=== PATIENT | female | born 1980 | race Caucasian/White ===

== ENCOUNTER 2024-05-06 11:04 | Outpatient (CLI) | payer MEDICAID, SELFPAY | END 2024-05-06 11:05 | disposition home or self-care (01) | LOC: NFLDUCREF 11:04 | PROVIDERS: Visit Provider Nurse Practitioner | DX: L29.9 Pruritus, unspecified (principal) | CPT/HCPCS: 80053 ==

== ENCOUNTER 2024-07-07 10:27 | Inpatient (IN) | payer MEDICAID, SELFPAY ==
[2024-07-07] VITALS (37 sets, daily range): BP systolic 90–143; BP diastolic 64–103; PULSE 120–150; RESP 16–20; TEMP 36.8–37.7; O2SAT 97–100; BMI 20.1
--- NOTE | 2024-07-07 10:30 | ED.GENADULT ---
HPI - General Adult General Date Seen: 07/07/24 Chief complaint: Dizziness/Vertigo Stated complaint: light headed - from UC - abnormal lab Time Seen by Provider: 07/07/24 10:30 History of Present Illness HPI narrative: 43-year-old female who was referred to the ER from the urgent care. Phone call from the urgent care provider is that she is a 40-year-old female with a history of alcoholism. She has apparently been cutting back on alcohol lately and apparently is not drinking currently. She presented with many complaints this morning. She is on an [id number] diuretic which contains magnesium salicylate. She takes it for peripheral edema. Her labs in urgent care this morning showed a critically low potassium less than 2.0. Vital signs included blood pressure of 97/58 and a pulse rate of 149. He urgent care was not able to get a manager cardiac or EKG to look for cardiac arrhythmias. They sent her straight here to the ER. Related Data Home Medications ?Medication ?Instructions ?Recorded ?Confirmed aspirin 81 mg tablet,delayed 81 mg PO QDAY 07/07/24 07/07/24 release (Adult Aspirin Regimen) magnesium salicylate-caffeine PO 07/07/24 07/07/24 [Diurex] Allergies Allergy/AdvReac Type Severity Reaction Status Date / Time No Known Drug Allergies Allergy Verified 07/07/24 10:47 Exam Const: Vital Signs, click to edit/add: Vital Signs - 24 hr 07/07/24 10:39 Temperature 98.2 F Pulse Rate [] 149 H Respiratory Rate 18 Blood Pressure [] 90/64 Pulse Oximetry 99 Oxygen Delivery Me thod Room Air Course Vital Signs Vital signs: Initial Vital Signs Temperature 98.2 F 07/07/24 10:39 Temperature Source Temporal Artery Scan 07/07/24 10:39 Pulse Rate 149 H 07/07/24 10:39 Respiratory Rate 18 07/07/24 10:39 Blood Pressure 90/64 07/07/24 10:39 Blood Pressure Mean 72 07/07/24 10:39 Blood Pressure Position Sitting 07/07/24 10:39 Pulse Oximetry 99 07/07/24 10:39 Oxygen Delivery Method Room Air 07/07/24 10:39 Vital Signs Temperature 98.2 F 07/07/24 10:39 Pulse Rate 149 H 07/07/24 10:39 Respiratory Rate 18 07/07/24 10:39 Blood Pressure 90/64 07/07/24 10:39 Pulse Oximetry 99 07/07/24 10:39 Oxygen Delivery Method Room Air 07/07/24 10:39 Temperature 98.2 F 07/07/24 10:39 Pulse Rate 149 H 07/07/24 10:39 Respiratory Rate 18 07/07/24 10:39 Blood Pressure 90/64 07/07/24 10:39 Pulse Oximetry 99 07/07/24 10:39 Oxygen Delivery Method Room Air 07/07/24 10:39 Medical Decision Making ECG Data Interpretation: SINUS TACHYCARDIA Rate: 149 OK: [] QRS axis: [] ST segment/T wave: [] QTc: [] Discharge Plan Discharge Prescriptions: No Action magnesium salicylate-caffeine [Diurex] PO aspirin [Adult Aspirin Regimen] 81 mg tablet,delayed release (DR/EC) 81 mg PO QDAY Follow Up/Referrals: Provider,Not a Local [Primary Care Provider] -
[2024-07-07 11:21] LABS: Basophils Percent Auto 0.1 % (0.0-3.0); Eosinophils Percent Auto 0.1 % (0.0-7.0); Hematocrit 32.1 % (33.0-51.0); Immature Granulocytes Pct Auto 0.4 %; Lymphocytes Percent Auto 11.9 % (20-44); Mean Corpuscular HGB Conc 37 gm/dL (32-36); Mean Corpuscular Hemoglobin 38 pg (26-34); Mean Corpuscular Volume 101 fL (80-100); Neutrophils Percent Auto 83.5 % (42.0-72.0); Platelet Count* 249 K/uL (140-440); RDW Coefficient of Variation % 19.1 % (11.5-15.5); Red Blood Count 3.17 m/uL (4.00-5.20); White Blood Count* 15.95 K/uL (4.50-11.00)
--- NOTE | 2024-07-07 11:24 | CRLHL7_ITS ---
For Patients: As a result of the Cures Act, medical imaging exams and procedure reports are released immediately into your electronic medical record. You may view this report before your referring provider. If you have questions, please contact your health care provider. INDICATION: Shortness of breath. TECHNIQUE: Chest 2 view(s) COMPARISON: None. FINDINGS: Cardiomediastinal silhouette and pulmonary vasculature are normal. No focal consolidation. Probable punctate calcified granulomas in the right upper lobe. No layering pleural effusion. No pneumothorax. Multilevel degenerative changes of the visualized spine. IMPRESSION: No focal consolidation. Dictated by Carlos Haywood MD @ 07/07/2024 12:11:35 PM (Electronically Signed)
--- NOTE | 2024-07-07 11:28 | ED.GENADULT ---
HPI - General Adult General Date Seen: 07/07/24 Chief complaint: Dizziness/Vertigo Stated complaint: light headed - from UC - abnormal lab Time Seen by Provider: 07/07/24 10:30 Source: patient, RN notes reviewed and old records reviewed Mode of arrival: ambulatory Limitations: no limitations History of Present Illness HPI narrative: Patient is a 43-year-old woman who went to urgent care today because of she says feeling weak and dizzy and sometimes short of breath. She has had symptoms on and off she says since april. She sometimes has nausea and vomiting sometimes diarrhea which she says is nonbloody. She has also noted some swelling in her ankles. The symptoms are very sporadic and do not happen predictably or every day. At Urgent Care she was noted to have a significantly low potassium as well as sinus tachycardia and was sent here for further evaluation. She does tell me that she has a history of heavy alcohol use for the past 3 years. She says she weaned herself off in april, but notes that she did have some alcohol a few days ago. She denies any other substance use. She does smoke cigarettes. Denies known medical history aside from anxiety and depression. She has not had any chest pain or abdominal pain. She has not had fevers. She has not had upper respiratory symptoms recently. Related Data Home Medications ?Medication ?Instructions ?Recorded ?Confirmed magnesium salicylate-caffeine 1 tab PO DAILY 07/07/24 07/07/24 Allergies Allergy/AdvReac Type Severity Reaction Status Date / Time No Known Drug Allergies Allergy Verified 07/07/24 10:47 Review of Systems Status of ROS: Reports: 10 or more systems reviewed and unremarkable except as noted in History and below [facility] Social History Smoking Status: Current every day smoker Do you use any of these nicotine containing products: None How many standard drinks containing alcohol do you have on a typical day: 3 or 4 How often do you have six or more drinks on one occasion: Daily or almost daily AUDIT-C Alcohol total score: 5 Non-prescribed substance use: denies use Exam Narrative: Exam Narrative: Vital signs as noted above. In general, an alert, nontoxic woman. Breathing easily. Head: Normocephalic, atraumatic. Eyes: Pupils are equal reactive. Extraocular movements are full. I do not see significant scleral icterus. ENT: Mucous membranes are moist. Neck: Supple without lymphadenopathy. Heart: Tachycardic and regular, no murmur. Lungs: Clear bilaterally. No increased work of breathing, crackles or wheezes. Abdomen: No obvious ascites. Liver edge is palpable below the costal margin. No tenderness to palpation. Extremities: Well perfused. No edema. No calf tenderness. Pulses intact. Neurologic: Patient is alert and oriented to person and place. Speech is fluent. Face is symmetric. Moves all extremities equally. Affect: Normal. Skin: Warm and dry. Well perfused. No obvious stigmata of liver disease. Const: Vital Signs, click to edit/add: Vital Signs - 24 hr 07/07/24 10:39 07/07/24 11:09 07/07/24 11:10 Temperature 98.2 F Pulse Rate 143 H 134 H Pulse Rate [Pulse Oximeter] 149 H Respiratory Rate 18 Blood Pressure 120/86 Blood Pressure [Ri ght Upper Arm] 90/64 Pulse Oximetry 99 100 100 Oxygen Delivery Me thod Room Air 07/07/24 11:15 07/07/24 11:30 07/07/24 11:32 Temperature Pulse Rate 129 H 139 H 138 H Pulse Rate [Pulse Oximeter] Respiratory Rate Blood Pressure 131/91 H Blood Pressure [Ri ght Upper Arm] Pulse Oximetry 100 100 100 Oxygen Delivery Me thod 07/07/24 11:45 07/07/24 12:00 07/07/24 12:02 Temperature Pulse Rate 142 H 132 H 139 H Pulse Rate [Pulse Oximeter] Respiratory Rate Blood Pressure 123/97 H Blood Pressure [Ri ght Upper Arm] Pulse Oximetry 100 100 100 Oxygen Delivery Me thod 07/07/24 12:03 07/07/24 12:15 07/07/24 12:30 Temperature Pulse Rate 142 H 134 H 129 H Pulse Rate [Pulse Oximeter] Respiratory Rate Blood Pressure Blood Pressure [Ri ght Upper Arm] Pulse Oximetry 100 99 99 Oxygen Delivery Me thod 07/07/24 12:32 07/07/24 12:45 07/07/24 13:00 Temperature Pulse Rate 130 H 125 H 131 H Pulse Rate [Pulse Oximeter] Respiratory Rate Blood Pressure 128/94 H Blood Pressure [Ri ght Upper Arm] Pulse Oximetry 98 99 98 Oxygen Delivery Me thod 07/07/24 13:02 07/07/24 13:15 07/07/24 13:30 Temperature Pulse Rate 129 H 123 H 138 H Pulse Rate [Pulse Oximeter] Respiratory Rate Blood Pressure 120/87 Blood Pressure [Ri ght Upper Arm] Pulse Oximetry 100 99 97 Oxygen Delivery Me thod 07/07/24 13:32 07/07/24 13:33 07/07/24 13:45 Temperature Pulse Rate 139 H 138 H 135 H Pulse Rate [Pulse Oximeter] Respiratory Rate Blood Pressure 136/96 H Blood Pressure [Ri ght Upper Arm] Pulse Oximetry 98 98 97 Oxygen Delivery Me thod Documenting provider has reviewed patient's vital signs: yes Course Course ED Course: Labs from Urgent Care rare reviewed, this was the point of care testing but potassium was noted to be less than 2, ionized calcium was 0.9, sodium 126. Her CO2 was normal. Blood sugar was normal. An IV is established here. She had an EKG which appears to show a sinus tachycardia with a fairly short MD interval and narrow QRS. No acute ST segment changes. Will give 500 mL of normal saline as well as IV and oral potassium replacement. Labs ordered including CBC, formal metabolic panel, ionized calcium, lactate, liver panel, UA among others. Labs most notable for potassium of 1.7, sodium of 124, ionized calcium of 0.9, magnesium of 1.8. White blood cell count is a little elevated at 16, hemoglobin is 12 and she has normal platelets. Gas shows metabolic alkalosis with a pH of 7.5 and a bicarb of 38. Renal function shows a creatinine of 0.3 and BUN is 4. Mild increased gap of 17. Blood sugars 100. Lactate could not be calculated because of electrolyte abnormalities. LFTs not surprisingly show an elevated bilirubin of 1.9, direct of 0.9, AST of 335 ALT pending alk-phos of 246. CRP minimally elevated at 2.2. Chest x-ray by my review was clear, final radiology read likewise negative.Patient: RICHARD TORRES Facility: [facility] Site . Site : [id number] Study: XRay-Chest 2V-07/07/2024 11:40:47 AM Ordering Physician: Kady Chan Final Report: INDICATION: Shortness of breath. TECHNIQUE: Chest 2 view(s) COMPARISON: None. FINDINGS: Cardiomediastinal silhouette and pulmonary vasculature are normal. No focal consolidation. Probable punctate calcified granulomas in the right upper lobe. No layering pleural effusion. No pneumothorax. Multilevel degenerative changes of the visualized spine. IMPRESSION: No focal consolidation. Tachycardia mildly improved after 500 mL of normal saline. Blood alcohol 0.08, inconsistent with her HPI is stating last alcohol a few days ago. COVID negative. No active signs of withdrawal at this time. Plan is for admission for treatment of severe hypokalemia and hyponatremia, further evaluation as to the etiology of these. This may be simply related to alcohol with occasional vomiting, primary aldosteronism felt to be unlikely in the absence of hypertension. While in the emergency department she had 40 mEq of extended release potassium orally as well as 2 10 mEq aliquots of IV potassium. Further electrolyte replacement will be carried out in the hospital. Discussed potential imaging of the abdomen, will hold off on that until stabilized metabolically. Vital Signs Vital signs: Initial Vital Signs Temperature 98.2 F 07/07/24 10:39 Temperature Source Temporal Artery Scan 07/07/24 10:39 Pulse Rate 149 H 07/07/24 10:39 Respiratory Rate 18 07/07/24 10:39 Blood Pressure 90/64 07/07/24 10:39 Blood Pressure Mean 72 07/07/24 10:39 Blood Pressure Position Sitting 07/07/24 10:39 Pulse Oximetry 99 07/07/24 10:39 Oxygen Delivery Method Room Air 07/07/24 10:39 Vital Signs Temperature 98.2 F 07/07/24 10:39 Pulse Rate 149 H 07/07/24 10:39 Respiratory Rate 18 07/07/24 10:39 Blood Pressure 90/64 07/07/24 10:39 Pulse Oximetry 99 07/07/24 10:39 Oxygen Delivery Method Room Air 07/07/24 10:39 Temperature 98.2 F 07/07/24 10:39 Pulse Rate 135 H 07/07/24 13:45 Respiratory Rate 18 07/07/24 10:39 Blood Pressure 136/96 H 07/07/24 13:32 Pulse Oximetry 97 07/07/24 13:45 Oxygen Delivery Method Room Air 07/07/24 10:39 Medications Administered Medications: Generic Name Dose Route Start Last Admin Trade Name Freq PRN Reason Stop Dose Admin Potassium Chloride 10 meq in 100 mls @ 100 mls/hr 07/07/24 13:06 07/07/24 13:16 Potassium Chloride IVPB 07/07/24 14:05 100 mls/hr ONCE ONE Administration Discontinued Medications Generic Name Dose Route Start Last Admin Trade Name Kwabena PRN Reason Stop Dose Admin Sodium Chloride 500 mls @ 500 mls/hr 07/07/24 11:23 07/07/24 13:05 0.9 % Sodium Chloride 500 Ml IV 07/07/24 12:22 Infused .Q1H ONE Infusion Potassium Chloride 10 meq in 100 mls @ 100 mls/hr 07/07/24 11:23 07/07/24 13:12 Potassium Chloride IVPB 07/07/24 12:22 Infused ONCE ONE Infusion Potassium Chloride 40 meq 07/07/24 11:23 07/07/24 11:59 Potassium Chloride 10 Meq Capsule Er PO 07/07/24 11:24 40 meq ONCE ONE Administration Medical Decision Making Lab Data Labs: Lab Results 07/07/24 07/07/24 07/07/24 Range/Units 11:10 11:25 11:45 WBC 15.95 H (4.50-11.00) K/uL RBC 3.17 L (4.00-5.20) m/uL Hgb 12.0 (12.0-16.0) gm/dL Hct 32.1 L (33.0-51.0) % MCV 101 H (80-100) fL MCH 38 H (26-34) pg MCHC 37 H (32-36) gm/dL RDW Coeff of Sylvain 19.1 H (11.5-15.5) % Plt Count 249 (140-440) K/uL Neut % (Auto) 83.5 H (42.0-72.0) % Lymph % (Auto) 11.9 L (20-44) % Desha % (Auto) 4.0 (0.0-11.0) % Eos % (Auto) 0.1 (0.0-7.0) % Baso % (Auto) 0.1 (0.0-3.0) % Neut # (Auto) 13.30 H (1.7-7.0) K/uL Lymph # (Auto) 1.90 (0.90-2.90) K/uL Desha # (Auto) 0.60 (0.00-0.90) K/UL Eos # (Auto) 0.00 (0.00-0.50) K/uL Baso # (Auto) 0.00 (0.00-0.30) K/uL Abs Immat Gran (auto) 0.10 (0.00-0.30) K/uL Imm/Tot Granulo (auto) 0.4 % INR 0.97 (0.91-1.10) VBG pH 7.532 H (7.32-7.43) VBG pCO2 46 (40-50) mmHG VBG pO2 < 30.1 (25-47) mmHG VBG HCO3 38 H (21-28) mmol/L Sodium 124 L* (135-149) mmol/L Potassium 1.7 L* (3.6-5.1) mmol/L Chloride 73 L (96-114) mmol/L Carbon Dioxide 34 H (20-32) mmol/L Anion Gap 17 H (7-15) mEq/L BUN 4 L (5-24) mg/dL Creatinine 0.3 L (0.5-1.5) mg/dL Estimated Creat Clear 190.46 Estimated GFR 135 ml/min Glucose 100 (60-115) mg/dL Lactate (0.5-1.9) mmol/L Calcium 8.1 L (8.4-10.6) mg/dL Ionized Calcium Reji 0.92 L (1.11-1.30) mmol/L Magnesium 1.8 (1.5-2.6) mg/dL Total Bilirubin 1.9 H (0.1-1.5) mg/dL Direct Bilirubin 0.9 H (0.0-0.5) mg/dL AST 335 H (12-35) U/L ALT 138 H (4-35) U/L Alkaline Phosphatase 246 H (40-150) U/L C-Reactive Protein 2.2 H (0.5-1.0) mg/dL NT-Pro-B Natriuret Pep 1000 pg/mL Total Protein 6.6 (6.0-8.3) g/dL Albumin 3.3 (3.3-5.0) g/dL TSH 1.920 (0.270-4.200) uIU/mL Ethyl Alcohol 0.08 H (0.01-0.03) % SARS-CoV-2 (PCR) Negative SARS-CoV-2 (Negative) Influenza Type A (PCR) Negative PCR FLU A (Negative) Influenza Type B (PCR) Negative PCR FLU B (Negative) RSV (PCR) Negative PCR RSV (Negative) POC Troponin I 0.01 (0.01-0.04) ng/ml
[2024-07-07] MEDS: 0.9 % SODIUM CHLORIDE 500 ML 500 ML IV (11:54)
[2024-07-07] MEDS: POTASSIUM CHLORIDE 10 MEQ/100 ML PIGGYBACK 100 MEQ IVPB ×3 (11:55→14:25)
[2024-07-07 11:56] LABS: HCO3 VBG 38 mmol/L (21-28); Ionized Calcium* 0.92 mmol/L (1.11-1.30); PCO2 VBG 46 mmHG (40-50); PO2 VBG < 30.1 mmHG (25-47); pH VBG 7.532 (7.32-7.43)
[2024-07-07 11:58] LABS: Slide Review Reflex No
[2024-07-07] MEDS: POTASSIUM CHLORIDE 10 MEQ CAPSULE ER 40 MEQ PO (11:59)
[2024-07-07 12:12] LABS: INR 0.97 (0.91-1.10); Prothrombin Time 13.5 Seconds
[2024-07-07 12:39] LABS: PCR FLU A Negative PCR FLU A (Negative); PCR FLU B Negative PCR FLU B (Negative); PCR RSV Negative PCR RSV (Negative); SARS PCR* Negative SARS-CoV-2 (Negative)
[2024-07-07 12:44] LABS: Troponin, Point-of-Care* 0.01 ng/ml (0.01-0.04)
[2024-07-07 12:46] LABS: Albumin* 3.3 g/dL (3.3-5.0); Chloride* 73 mmol/L (96-114)
[2024-07-07 12:48] LABS: Creatinine* 0.3 mg/dL (0.5-1.5); Est. Creatinine Clearance* 190.46; Estimated Glomerular Filt Rate 135 ml/min
[2024-07-07 12:49] LABS: Alkaline Phosphatase* 246 U/L (40-150); Aspartate Amino Transferase* 335 U/L (12-35); Bilirubin Direct* 0.9 mg/dL (0.0-0.5); Bilirubin Total* 1.9 mg/dL (0.1-1.5); Blood Urea Nitrogen* 4 mg/dL (5-24); Carbon Dioxide* 34 mmol/L (20-32); Glucose* 100 mg/dL (60-115); Total Protein* 6.6 g/dL (6.0-8.3)
[2024-07-07 12:50] LABS: Calcium* 8.1 mg/dL (8.4-10.6); Ethanol* 0.08 % (0.01-0.03); Magnesium* 1.8 mg/dL (1.5-2.6)
[2024-07-07 12:52] LABS: Anion Gap 17 mEq/L (7-15); C Reactive Protein* 2.2 mg/dL (0.5-1.0)
[2024-07-07 12:53] LABS: Sodium* 124 mmol/L (135-149)
[2024-07-07 12:54] LABS: Potassium* 1.7 mmol/L (3.6-5.1)
[2024-07-07 13:11] LABS: Alanine Aminotransferase* 138 U/L (4-35); NT Pro B Type NatriureticPept* 1000 pg/mL
[2024-07-07] MEDS: CALCIUM GLUC 1,000MG/50 ML 1,000 MG/50 ML BAG 100 MG IVPB ×2 (14:13→22:56)
[2024-07-07 14:18] LABS: Appearance Urine Cloudy (Clear); Bilirubin Urine 2+ (Negative); Blood Urine Trace-intact (Negative); Color Urine Red (Yellow); Glucose Urine Negative (Negative); Ketones Urine 1+ (Negative); Leukocyte Esterase Urine Negative (Negative); Nitrite Urine Positive (Negative); Protein Urine 2+ (Negative); Urobilinogen Urine >=8.0 (0.2-1.0); pH Urine 6.5 (5.0-8.5)
[2024-07-07 14:19] LABS: PCO2 VBG 44 mmHG (40-50); PO2 VBG < 30.1 mmHG (25-47); pH VBG 7.558 (7.32-7.43)
[2024-07-07 14:20] LABS: HCO3 VBG 39 mmol/L (21-28)
[2024-07-07 14:34] LABS: Bacteria Urine Many; RBC Urine 0-2 (0-2); Squamous Epithelial Cell Urine Few (None-Few); WBC Urine 0-2 (0-5)
[2024-07-07 14:35] LABS: Ur HCG Qualitative* Negative (Negative)
[2024-07-07 14:40] LABS: Amphetamine Screen Urine Negative (Negative); Barbiturate Screen Urine Negative (Negative); Benzodiazepines Screen Urine Negative (Negative); Cannabinoid Screen Urine POSITIVE (Negative); Cocaine Screen Urine Negative (Negative); Methadone Screen Urine Negative (Negative); Methamphetamines Screen Urine Negative (Negative); Opiate Screen Urine Negative (Negative); Oxycodone Screen Urine Negative (Negative); Phencyclidine Screen Urine Negative (Negative); Tricyclic Antidepressant Urine Negative (Negative)
[2024-07-07 14:46] LABS: Lipase* 332 U/L (23-300)
[2024-07-07 14:48] LABS: Albumin* 2.6 g/dL (3.3-5.0); Chloride* 76 mmol/L (96-114)
[2024-07-07 14:49] LABS: Sodium* 125 mmol/L (135-149)
[2024-07-07 14:51] LABS: Anion Gap 12 mEq/L (7-15); Aspartate Amino Transferase* 271 U/L (12-35); Bilirubin Total* 2.1 mg/dL (0.1-1.5); Carbon Dioxide* 37 mmol/L (20-32); Creatinine* 0.3 mg/dL (0.5-1.5); Est. Creatinine Clearance* 190.63; Estimated Glomerular Filt Rate 135 ml/min; Total Protein* 5.7 g/dL (6.0-8.3)
[2024-07-07 14:52] LABS: Alkaline Phosphatase* 206 U/L (40-150); Blood Urea Nitrogen* 5 mg/dL (5-24); Calcium* 7.3 mg/dL (8.4-10.6); Glucose* 105 mg/dL (60-115)
[2024-07-07 14:56] LABS: Potassium* 1.7 mmol/L (3.6-5.1)
--- NOTE | 2024-07-07 15:08 | CRLHL7_ITS ---
For Patients: As a result of the Century Cures Act, medical imaging exams and procedure reports are released immediately into your electronic medical record. You may view this report before your referring provider. If you have questions, please contact your health care provider. INDICATION: Tachycardia, liver disease TECHNIQUE: CT chest, abdomen and pelvis acquired with 54 milliliters Isovue 370 IV contrast. COMPARISON: None. FINDINGS: CHEST: Cardiovascular structures: Heart size is normal. Thoracic aorta and main pulmonary artery are normal in caliber. No central pulmonary embolism. Mediastinum and johnathan: No mass or adenopathy. Lungs and pleura: Lungs and pleural spaces are clear. No suspicious nodules, infiltrates, or effusions. Chest wall and axilla: Bilateral breast implants. No mass or adenopathy. Bones: No suspicious bone lesions. Unremarkable for age. ABDOMEN AND PELVIS: Liver: Severe hepatic steatosis. Gallbladder and bile ducts: Unremarkable. Pancreas: Unremarkable. Spleen: Unremarkable. Adrenal glands: Unremarkable. Kidneys: No hydronephrosis. GI tract: Diffuse colonic wall thickening most pronounced about the ascending and sigmoid colon/rectum. Additional gastric wall thickening. No bowel obstruction. Vascular structures: Unremarkable. Lymph nodes: Unremarkable. Miscellaneous: Unremarkable. No free air or significant free fluid. Pelvic Organs: Unremarkable. Bones: No suspicious bone lesions. Unremarkable for age. IMPRESSION: Diffuse gastric and colonic wall thickening most pronounced in the ascending and sigmoid colon/rectum, possibly related to gastric/portal colopathy in this patient with chronic hepatocellular disease, including severe hepatic steatosis. Acute pancolitis could have a similar appearance and should be clinically excluded. Otherwise, no acute intrathoracic or intra-abdominal/pelvic abnormality. Please note that all CT scans at this facility use dose modulation, iterative reconstruction, and/or weight-based dosing when appropriate to reduce radiation dose to as low as reasonably achievable. Dictated by Davi Reynolds MD @ 07/07/2024 4:58:54 PM (Electronically Signed)
--- NOTE | 2024-07-07 15:17 | P.IMHP_ITS ---
Hospitalist- H&P: HPI History of Present Illness Date Seen: 07/07/24 Chief complaint: light headed - from - abnormal lab Narrative: ADMISSION HISTORY AND PHYSICAL - HOSPITALIST Chief Complaint: Weakness, dizziness, abdominal pain, diarrhea. HPI: 43 y/o WF with a hx of alcoholism, tobacco and marijuana dependence and anxiety presents to a local urgent care with intermittent weakness, dizziness, abdominal pain, diarrhea. This had been going on for 2 months. Some days better; some days worse. No fever. Reports cough with phlegm but blames that on allergies. She notes 2-3 years of ankle swelling. This morning she was worse than her usual bad day and was sick of feeling sick. At urgent care she was noted to be hypertensive, tachycardia and point of care electrolytes were abnormal (undetectable POC potassium) and she was told to drive to the ED. She arrived soon after. She reports her last drink was three days ago, a bit of vodka - not much. When I pointed out she was legally intoxicated at 0.08 and it would suggest she drank yesterday; she seemed indifferent. She also states no other drugs; but UDS +for marijuana. ER COURSE: fluids; electrolyte replacement for low calcium, mag and potassium. sent over to CCU with sinus tachycardia. CODE STATUS: FULL CODE EMERGENCY CONTACT PLAN: daughter or son Adeline Guaman Rel To Pat Daughter Cell I've updated the PFSH, medications and allergies in the Expanse tabs. INVESTIGATIONS: LABS/MICRO/ECG/IMAGING T-max has been 99.9 Blood pressure highest 140/97 currently 131/95 Tachycardic 140s to 150s Respirator some 20, unlabored Satting 100% on room air 49 kilos, BMI 20 CBC reveals a normal hemoglobin and platelet count. Somewhat elevated white blood cell count 16K, 83% neutrophils INR 0.97 Blood gas shows a mild to moderate alkalosis with a pH of 7.5. Normal CO2. Bicarb is elevated at 39. Sodium is 125, potassium 1.7, magnesium borderline 1.8. Normal gap. Creatinine is normal, 0.3 glucose is 105. Liver enzymes: Total bili 2.1 elevated AST, ALT, alk-phos. In the low 100 to 200s. CRP 2.2 Albumin is low at 2.6, low protein at 5.7. Lipase mildly elevated at 332. Normal TSH. Urine shows 1+ ketones, positive nitrite, 2+ bilirubin, greater than 8 on urobiligen, many bacteria HCG negative COVID and other respiratory viral screen negative Trop undetectable Chest x-ray unremarkable Urine culture pending EKG shows sinus tachycardia at 135. Biatrial enlargement, ST changes without acute ischemia. REVIEW OF SYSTEMS: 12-point ROS completed with patient and negative unless otherwise stated in HPI or below. PHYSICAL EXAM: CONSTITUTIONAL: Conversive, looks tired; does not appear intoxicated. swollen cheeks; legs. protuberant abdomen. VITAL SIGNS: see record. HEENT: Normocephalic, atraumatic. PERRL, EOMI, conjunctivae pink, no scleral icterus. Ears and nose externally normal. Pharynx sticky. NECK: No JVD. No carotid bruit, no thyromegaly, no adenopathy. CHEST: Clear to auscultation bilaterally HEART: Tachy, S1 and S2 normal. No harsh murmurs. Edema MUSCULOSKELETAL: No gross joint deformity or swelling. NEURO: Cranial nerves intact. Grossly intact. No asymmetric findings. SKIN: No rashes, petechiae, concerning changes PSYCHIATRIC: Euthymic. ADMIT TO MEDSURG: CCU DVT: Lovenox GI: IV and PO PPI, PO intake Time spent: Today I spent 75 minutes seeing the patient, discussing the patient with ER staff, reviewing Expanse and EPIC notes/diagnostics, discussing the care plan with our care time that includes social work, PT/OT, pharmacy, RT, long term and documenting my impressions and plan in the medical record. [facility] Medical History (Updated 07/07/24 @ 16:37 by Robyn Duggan MD) Alcohol use disorder ?F10.90 - Alcohol use, unspecified, uncomplicated (ICD-10) Alcoholic liver disease ?K70.9 - Alcoholic liver disease, unspecified (ICD-10) Tobacco dependence ?F17.200 - Nicotine dependence, unspecified, uncomplicated (ICD-10) Tetrahydrocannabinol (THC) dependence ?F12.20 - Cannabis dependence, uncomplicated (ICD-10) Surgical History (Updated 07/07/24 @ 15:34 by Robyn Duggan MD) H/O breast augmentation ?Z98.82 - Breast implant status (ICD-10) Vaginal delivery ?O80 - Encounter for full-term uncomplicated delivery (ICD-10) H/O arthroscopy of knee ?Z98.890 - Other specified postprocedural states (ICD-10) Family History (Updated 07/07/24 @ 16:32 by Robyn Duggan MD) Mother Stroke Father Stroke Social History (Updated 07/07/24 @ 16:34 by Robyn Duggan MD) Narrative: unemployed; , lives alone in apartment, two grown kids live in [place], daily drinker, THC, tobacco. What is your current living situation?: I presently have a place to live Problems where you live: no known problems Problems where you live details: 5 flights of steps, no elevator In the past 12 months, utilities in danger of being shut off: no In past 12 months, lack of transportation kept you from medical appts, meetings, work, or getting things needed for daily living: no In the past 12 mos, have been you worried that your food would run out before you had money to buy more?: never true In the past 12 mos, the food you bought just didn't last and you didn't have money to buy more?: never true Highest level of school completed/degree received: Associate degree: occupational, technical, vocational program Smoking Status: Current every day smoker What tobacco products do you use: cigarettes Smoking packs per day: 0.25 Smoking cigarettes per day: 5.0 Do you use any of these nicotine containing products: None Second hand tobacco smoke exposure: No How often do you have a drink containing alcohol: 2-3 times a week Alcohol type: other Alcohol type details: white claws and fireball, occasional wine How many standard drinks containing alcohol do you have on a typical day: 3 or 4 How often do you have six or more drinks on one occasion: Daily or almost daily AUDIT-C Alcohol total score: 8 Non-prescribed substance use: marijuana (any form) Caffeine: No Are you now , , , , never or living with a partner: Social isolation score (0-1 are the most socially isolated patients): 0 How often does anyone, including family, friends and others, physically hurt you : never How often does anyone, including family, friends and others, insult or talk down to you: never How often does anyone, including family, friends and others, threaten you with harm: never How often does anyone, including family, friends and others, scream or curse at you: never service: No Meds Home Medications and Allergies Home Medications ?Medication ?Instructions ?Recorded ?Confirmed ?Type magnesium salicylate 162.5 1 tab PO DAILY 07/07/24 07/07/24 History mg-caffeine 50 mg tablet (Diurex) Allergies Allergy/AdvReac Type Severity Reaction Status Date / Time No Known Drug Allergies Allergy Verified 07/07/24 10:47 Exam Const: Vital Signs, click to edit/add: Vital Signs - 24 hr 07/07/24 10:39 07/07/24 11:09 07/07/24 11:10 Temperature 98.2 F Pulse Rate 143 H 134 H Pulse Rate [Left R adial] Pulse Rate [Pulse Oximeter] 149 H Respiratory Rate 18 Blood Pressure 120/86 Blood Pressure [Le ft Arm] Blood Pressure [Ri ght Upper Arm] 90/64 Pulse Oximetry 99 100 100 Oxygen Delivery Me od Room Air 07/07/24 11:15 07/07/24 11:30 07/07/24 11:32 Temperature Pulse Rate 129 H 139 H 138 H Pulse Rate [Left R adial] Pulse Rate [Pulse Oximeter] Respiratory Rate Blood Pressure 131/91 H Blood Pressure [Le ft Arm] Blood Pressure [Ri ght Upper Arm] Pulse Oximetry 100 100 100 Oxygen Delivery Me thod 07/07/24 11:45 07/07/24 12:00 07/07/24 12:02 Temperature Pulse Rate 142 H 132 H 139 H Pulse Rate [Left R adial] Pulse Rate [Pulse Oximeter] Respiratory Rate Blood Pressure 123/97 H Blood Pressure [Le ft Arm] Blood Pressure [Ri ght Upper Arm] Pulse Oximetry 100 100 100 Oxygen Delivery Me thod 07/07/24 12:03 07/07/24 12:15 07/07/24 12:30 Temperature Pulse Rate 142 H 134 H 129 H Pulse Rate [Left R adial] Pulse Rate [Pulse Oximeter] Respiratory Rate Blood Pressure Blood Pressure [Le ft Arm] Blood Pressure [Ri ght Upper Arm] Pulse Oximetry 100 99 99 Oxygen Delivery Me thod 07/07/24 12:32 07/07/24 12:45 07/07/24 13:00 Temperature Pulse Rate 130 H 125 H 131 H Pulse Rate [Left R adial] Pulse Rate [Pulse Oximeter] Respiratory Rate Blood Pressure 128/94 H Blood Pressure [Le ft Arm] Blood Pressure [Ri ght Upper Arm] Pulse Oximetry 98 99 98 Oxygen Delivery Me thod 07/07/24 13:02 07/07/24 13:15 07/07/24 13:30 Temperature Pulse Rate 129 H 123 H 138 H Pulse Rate [Left R adial] Pulse Rate [Pulse Oximeter] Respiratory Rate Blood Pressure 120/87 Blood Pressure [Le ft Arm] Blood Pressure [Ri ght Upper Arm] Pulse Oximetry 100 99 97 Oxygen Delivery Me thod 07/07/24 13:32 07/07/24 13:33 07/07/24 13:45 Temperature Pulse Rate 139 H 138 H 135 H Pulse Rate [Left R adial] Pulse Rate [Pulse Oximeter] Respiratory Rate Blood Pressure 136/96 H Blood Pressure [Le ft Arm] Blood Pressure [Ri ght Upper Arm] Pulse Oximetry 98 98 97 Oxygen Delivery Me thod 07/07/24 14:32 Temperature 99.9 F H Pulse Rate Pulse Rate [Left R adial] 150 H Pulse Rate [Pulse Oximeter] Respiratory Rate 20 Blood Pressure Blood Pressure [Le ft Arm] 140/97 H Blood Pressure [Ri ght Upper Arm] Pulse Oximetry 98 Oxygen Delivery Me thod Room Air Hospitalist - H&P: Result Labs Labs: Short CBC 07/07/24 Range/Units 11:10 WBC 15.95 H (4.50-11.00) K/uL Hgb 12.0 (12.0-16.0) gm/dL Hct 32.1 L (33.0-51.0) % Plt Count 249 (140-440) K/uL BMP 07/07/24 07/07/24 11:10 14:13 Sodium 124 L* 125 L Potassium 1.7 L* 1.7 L* Chloride 73 L 76 L Carbon Dioxide 34 H 37 H BUN 4 L 5 Creatinine 0.3 L 0.3 L Glucose 100 105 Calcium 8.1 L 7.3 L Liver Function 07/07/24 07/07/24 Range/Units 11:10 14:13 Total Bilirubin 1.9 H 2.1 H (0.1-1.5) mg/dL Direct Bilirubin 0.9 H (0.0-0.5) mg/dL AST 335 H 271 H (12-35) U/L ALT 138 H (4-35) U/L Alkaline Phosphatase 246 H 206 H (40-150) U/L Albumin 3.3 2.6 L (3.3-5.0) g/dL Urine 10/24/24 Range/Units 14:10 Urine Color Red A (Yellow) Urine Appearance Cloudy A (Clear) Urine pH 6.5 (5.0-8.5) Ur Specific [place] 1.020 (1.000-1.030) Urine Protein 2+ A (Negative) Urine Glucose (UA) Negative (Negative) Assessment and Plan Assessment and plan (1) Alcoholic liver disease: Problem comment: stigmata: transaminitis; hypoalbuminemia, peripheral edema; ascites, electrolyte imbalance, malnourished BUT no thrombocytopenia, anemia. INR normal. MELDNa score 21; 7-10% 90 day mortality consider para (moderate concern for SBP: ascites; ALD, abd tenderness; low grade fever; elevated WBC) Status: Acute (2) Acute hypokalemia: Problem comment: oral and IV replacement mag replacement albumin infusion Status: Acute (3) Alcohol withdrawal: Problem comment: -CIWA protocol -likely explains the tachycardia -gabapentin TID -phenobarbital -supportive care Status: Acute (4) Abdominal pain: Problem comment: ddx: gastritis/ucer; dyspepsia; SBP, ascites pressure, infectious AGE -getting CT -IV protonix and start oral PPI -CDIFF screen -GI PCR to [facility] for infectious causes -May need EGD Status: Acute (5) Hyponatremia: Problem comment: monitor; fluid restriction NS bolus given Status: Acute (6) Alcohol use disorder: Problem comment: thiamine; MVM, folic acid will recommend treatment/rehab and complete abstinence Status: Acute (7) UTI (urinary tract infection): Problem comment: +nitrate; bacteria. no symptoms. considering tap prior to abx; awaiting lactate results; abx likely forthcoming. Status: Acute (8) Tetrahydrocannabinol (THC) dependence: Status: Acute (9) Tobacco dependence: Problem comment: nicotine patch Status: Acute
[2024-07-07 15:28] LABS: Alanine Aminotransferase* 110 U/L (4-35)
[2024-07-07] MEDS: 5 % DEX/0.45 SOD CHL+KCL20 mEq 1,000 ML 125 ML IV (15:58)
[2024-07-07] MEDS: PANTOPRAZOLE SODIUM 40 MG INJ IVP (15:58)
[2024-07-07] MEDS: GABAPENTIN 100 MG CAPSULE 200 MG PO ×2 (16:20→21:14)
[2024-07-07] MEDS: PHENobarbitaL 260 MG in 0.9 % SODIUM CHLORIDE 100 ml 100 ML 208 MG IVPB (16:57)
[2024-07-07] MEDS: SODIUM CHLORIDE 0.9 % (FLUSH) 10 ML SYRINGE 5 ML IVF ×3 (16:57→21:14)
[2024-07-07] MEDS: POTASSIUM CHLORIDE 10 MEQ/100 ML PIGGYBACK 50 MEQ IVPB (17:11)
[2024-07-07 17:15] LABS: C.Difficile Negative (Negative); CDIFFEPI 027 PRESUMPTIVE NEGATIVE (Negative)
[2024-07-07] MEDS: ALBUMIN HUMAN 25% 25 GM/100 ML VIAL IVPB (17:34)
[2024-07-07 17:56] LABS: Gamma Glutamyl Transpeptidase* 1009 U/L (8-55)
[2024-07-07 18:13] LABS: Procalcitonin* 0.25 ng/mL (<0.50)
[2024-07-07] MEDS: THIAMINE 250 MG in 0.9 % SODIUM CHLORIDE 100 ml 100 ML 102.5 MG IVPB (18:54)
[2024-07-07 19:06] LABS: Creatine Kinase* 80 U/L (41-117)
--- NOTE | 2024-07-07 19:11 | PC.NURSE ---
End of shift CCU- Pt has been pleasant and cooperative. Alert and oriented. Mildly anxious and fidgeting was noted. CIWAs 3-5. VSS, though pt is tachycardic with HR from 120s-140s and hypertensive with B/Ps 130s/90s. SPO2 maintained >94% on RA. She denied any pain, but did c/o some abdominal pressure. LS CTA, though pt has a moderately productive cough. Abdomen is somewhat distended and pt has had 2 small, continent, loose BMs this evening and ate roughly 25-50% of her dinner. Telemetry shows Sinus Tachycardia. Pt initially c/o some SOB and lightheadedness when changing positions, though improvement was noted throughout the evening. She was up to the commode with SBA and voided approximately 100ml of magda colored urine this shift. Former partner and friend were at bedside this evening and appear loving and supportive.
[2024-07-07 20:34] LABS: HCO3 VBG 39 mmol/L (21-28); Ionized Calcium* 0.96 mmol/L (1.11-1.30); PCO2 VBG 52 mmHG (40-50); PO2 VBG 33.6 mmHG (25-47); pH VBG 7.484 (7.32-7.43)
[2024-07-07 20:53] LABS: Chloride* 77 mmol/L (96-114); Sodium* 125 mmol/L (135-149)
[2024-07-07 20:56] LABS: Anion Gap 11 mEq/L (7-15); Blood Urea Nitrogen* 5 mg/dL (5-24); Carbon Dioxide* 37 mmol/L (20-32); Creatinine* 0.3 mg/dL (0.5-1.5); Est. Creatinine Clearance* 190.63; Estimated Glomerular Filt Rate 135 ml/min; Glucose* 114 mg/dL (60-115); Phosphorus* 2.1 mg/dL (2.5-4.5)
[2024-07-07 20:57] LABS: Calcium* 7.7 mg/dL (8.4-10.6); Magnesium* 2.1 mg/dL (1.5-2.6)
[2024-07-07 21:00] LABS: Potassium* 1.6 mmol/L (3.6-5.1)
[2024-07-07] MEDS: POTASSIUM BICARB 25 MEQ EFFERVESCENT TAB 50 MEQ PO ×2 (21:11→23:26)
[2024-07-07] MEDS: ENOXAPARIN 40 MG/0.4 ML INJ SUBCUT (21:13)
[2024-07-07] MEDS: MAGNESIUM OXIDE 400 MG TABLET 800 MG PO (21:14)
[2024-07-07] MEDS: CIPROFLOXACIN 400 MG/200 ML PIGGYBACK 200 MG IVPB (21:16)
[2024-07-07] MEDS: metroNIDAZOLE 500 MG/100 ML PIGGYBACK 100 MG IVPB (21:16)
[2024-07-07 22:42] LABS: Troponin I* 0.02 ng/mL (0.01-0.04)
[2024-07-08] VITALS (21 sets, daily range): BP systolic 98–123; BP diastolic 75–94; PULSE 99–133; RESP 16–18; TEMP 36.7–37.3; O2SAT 94–100; BMI 20.6
[2024-07-08] MEDS: THIAMINE 250 MG in 0.9 % SODIUM CHLORIDE 100 ml 100 ML 102.5 MG IVPB ×4 (00:22→21:32)
[2024-07-08 00:27] LABS: Hematocrit 23.5 % (33.0-51.0); Hemoglobin* 8.5 gm/dL (12.0-16.0); Mean Corpuscular HGB Conc 36 gm/dL (32-36); Mean Corpuscular Hemoglobin 38 pg (26-34); Mean Corpuscular Volume 104 fL (80-100); Platelet Count* 168 K/uL (140-440); Red Blood Count 2.26 m/uL (4.00-5.20); White Blood Count* 10.85 K/uL (4.50-11.00)
[2024-07-08 00:38] LABS: Slide Review Reflex No
[2024-07-08 00:41] LABS: Chloride* 81 mmol/L (96-114); Sodium* 127 mmol/L (135-149)
[2024-07-08 00:44] LABS: Creatinine* 0.3 mg/dL (0.5-1.5); Est. Creatinine Clearance* 190.63; Estimated Glomerular Filt Rate 135 ml/min; Lipase* 364 U/L (23-300); Phosphorus* 1.8 mg/dL (2.5-4.5)
[2024-07-08 00:45] LABS: Blood Urea Nitrogen* 4 mg/dL (5-24); Calcium* 7.8 mg/dL (8.4-10.6); Glucose* 98 mg/dL (60-115); Magnesium* 2.1 mg/dL (1.5-2.6)
[2024-07-08 00:52] LABS: Anion Gap 6 mEq/L (7-15); Carbon Dioxide* 40 mmol/L (20-32)
[2024-07-08 00:53] LABS: Potassium* 2.7 mmol/L (3.6-5.1)
[2024-07-08 01:07] LABS: HCO3 VBG 43 mmol/L (21-28); Ionized Calcium* 0.99 mmol/L (1.11-1.30); PCO2 VBG 54 mmHG (40-50); PO2 VBG < 30.1 mmHG (25-47); pH VBG 7.506 (7.32-7.43)
[2024-07-08 01:08] LABS: Lactate* 3.7 mmol/L (0.5-1.9)
[2024-07-08] MEDS: POTASSIUM CHLORIDE 10 MEQ CAPSULE ER 60 MEQ PO ×2 (02:32→06:36)
[2024-07-08] MEDS: metroNIDAZOLE 500 MG/100 ML PIGGYBACK 100 MG IVPB ×3 (06:35→21:36)
[2024-07-08] MEDS: OMEPRAZOLE 20 MG CAPSULE DR 40 MG PO (06:36)
[2024-07-08 06:41] LABS: Basophils Absolute Auto 0.02 K/uL (0.00-0.30); Basophils Percent Auto 0.2 % (0.0-3.0); Eosinophils Absolute Auto 0.07 K/uL (0.00-0.50); Eosinophils Percent Auto 0.7 % (0.0-7.0); HCO3 VBG 42 mmol/L (21-28); Hematocrit 22.2 % (33.0-51.0); Immature Granulocytes Abs Auto 0.03 K/uL (0.00-0.30); Immature Granulocytes Pct Auto 0.3 %; Ionized Calcium* 1.02 mmol/L (1.11-1.30); Lactate* 1.9 mmol/L (0.5-1.9); Lymphocytes Absolute Auto 2.94 K/uL (0.90-2.90); Lymphocytes Percent Auto 29.4 % (20-44); Mean Corpuscular HGB Conc 36 gm/dL (32-36); Mean Corpuscular Hemoglobin 38 pg (26-34); Mean Corpuscular Volume 105 fL (80-100); Monocytes Percent Auto 4.6 % (0.0-11.0); Neutrophils Absolute Auto 6.49 K/uL (1.7-7.0); Neutrophils Percent Auto 64.8 % (42.0-72.0); PCO2 VBG 48 mmHG (40-50); PO2 VBG 64.3 mmHG (25-47); Platelet Count* 160 K/uL (140-440); RDW Coefficient of Variation % 20.4 % (11.5-15.5); Red Blood Count 2.11 m/uL (4.00-5.20); White Blood Count* 10.01 K/uL (4.50-11.00); pH VBG 7.548 (7.32-7.43)
[2024-07-08 07:05] LABS: Slide Review Reflex No
[2024-07-08 07:21] LABS: Albumin* 2.5 g/dL (3.3-5.0); Chloride* 88 mmol/L (96-114)
[2024-07-08 07:22] LABS: Potassium* 3.7 mmol/L (3.6-5.1); Sodium* 131 mmol/L (135-149)
[2024-07-08 07:24] LABS: Creatinine* 0.3 mg/dL (0.5-1.5); Est. Creatinine Clearance* 191.24; Estimated Glomerular Filt Rate 135 ml/min
[2024-07-08 07:25] LABS: Alanine Aminotransferase* 100 U/L (4-35); Alkaline Phosphatase* 174 U/L (40-150); Aspartate Amino Transferase* 249 U/L (12-35); Bilirubin Direct* 0.6 mg/dL (0.0-0.5); Bilirubin Total* 1.8 mg/dL (0.1-1.5); Blood Urea Nitrogen* 5 mg/dL (5-24); Calcium* 7.7 mg/dL (8.4-10.6); Glucose* 96 mg/dL (60-115); Magnesium* 2.9 mg/dL (1.5-2.6); Phosphorus* 2.4 mg/dL (2.5-4.5); Total Protein* 5.3 g/dL (6.0-8.3)
[2024-07-08 07:32] LABS: Anion Gap 4 mEq/L (7-15); Carbon Dioxide* 39 mmol/L (20-32)
--- NOTE | 2024-07-08 07:46 | PC.NURSE ---
END OF SHIFT NOTE: PT PLEASANT AND COOPERATIVE WITH CARES. A&O. PT USING BSC DUE TO URGENCY. SEVERAL LOOSE STOOLS DURING HS. CIWA DURING HS 1, 1, 0. TELE READS SINUS TACH. POTASSIUM CONTINUES TO BE REPLACED NEEDED (SEE EMAR). ABX GIVEN FOR UTI. UNEVENTFUL NIGHT.
[2024-07-08] MEDS: GABAPENTIN 100 MG CAPSULE 200 MG PO ×2 (08:26→21:32)
[2024-07-08] MEDS: MULTIVITAMIN/MINERALS 1 TABLET 1 TAB PO (08:26)
[2024-07-08] MEDS: FOLIC ACID 1 MG TABLET PO (08:27)
[2024-07-08] MEDS: CIPROFLOXACIN 400 MG/200 ML PIGGYBACK 200 MG IVPB (08:27)
[2024-07-08 09:22] LABS: HCG Qualitative Serum* Negative (Negative)
--- NOTE | 2024-07-08 09:23 | PM.IMPN1 ---
Progress Note: A&P Assessment and plan (1) Metabolic alkalosis: Problem details: - persistently elevated pH and elevated serum bicarb. Suspect due to volume contraction and severe hypokalemia. Differential includes GI loss of in IN as she was nauseous and vomiting prior to admission, laxative or diuretic abuse (notably patient denies this, but does have severe protein calorie malnutrition and diarrhea, so I cannot rule this out), Adolfo syndrome (patient does not have other sequela of this), caffeine poisoning (again, patient denies this, but it could also explain severe hypokalemia) - Hypokalemia has resolved. I suspect she is still dehydrated and would like to try oral hydration with nutritional supplements for sodium content and protein content. Monitor VBG peer Status: Acute (2) Alcoholic liver disease: Problem details: stigmata: transaminitis; hypoalbuminemia, peripheral edema, electrolyte imbalance, malnourished BUT no thrombocytopenia, anemia. INR normal. MELDNa score 21; 7-10% 90 day mortality SBP still on radar but less likely without ascites. - 07/08 Afebrile. WBC wnl. LFTs stable. Abdomen nontender. Hepatitis panel pending. No thrombocytopenia today. After hydration hemoglobin is lower at 8, stable. Monitor. I think SBP remains less likely. Continue to monitor. Encourage abstinence. Social Work to see. Status: Acute (3) Acute hypokalemia: Problem details: oral and IV replacement mag replacement albumin infusion x 1 Status: Resolved (4) Alcohol withdrawal: Problem details: -CIWA protocol -likely explains the tachycardia -gabapentin TID -phenobarbital + benzos -supportive care - 07/08 continue gabapentin scheduled t.i.d.. Giving more phenobarbital this morning as patient is starting to have more withdrawal symptoms this morning. I note that medical blood alcohol level was 0.08 upon admission yesterday. Status: Acute (5) Abdominal pain: Problem details: pancolitis vs portal colopathy; dyspepsia; SBP (no acites), infectious AGE -CT confirmed above pancolitis - unclear etiology. CDIFF neg. -IV protonix and start oral PPI -GI PCR to [facility] for infectious causes -IV Cipro and Flagyl -May need EGD - 07/08 abdominal pain has resolved. Continue as above. Monitor. Status: Acute (6) Hyponatremia: Problem details: monitor; fluid restriction NS bolus given - 07/08 sodium improving, 131 today. Symptoms also improving. No longer nauseous or vomiting. I think this is likely secondary to volume depletion and malnutrition due to alcohol use. Encourage good oral intake of food and fluids. Remove fluid restriction. Start nutritional supplements 3 times a day. Nutrition consult. Status: Acute (7) Alcohol use disorder: Problem details: thiamine; MVM, folic acid will recommend treatment/rehab and complete abstinence Status: Acute (8) UTI (urinary tract infection): Problem details: +nitrate; bacteria. no symptoms. 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 While she was nauseous and vomiting at home, she has not had anything like that here. She complains of feeling fatigued today and tells me that she was just about to fall asleep when I came in. She notes that she feels very irritable this morning. She says the only medication that she took at home was an [id number] diuretic that she got at [facility] that is a combination of magnesium and caffeine. She took 1 tablet a day and is never any more than that. Her last dose of that was 2 mornings ago. She takes that to help with the swelling in her feet. She started it a couple of months ago but had not noticed any difference in the swelling in her feet. We discussed elevating her feet instead of taking pills for that and increasing protein in her diet. Since she was somewhat irritable this morning; she was not receptive to advice. She adamantly denies any other caffeine or diuretic or laxative intake/use. She's never had a colonoscopy. No family h/o colon cancer or bowel disease. Exam Narrative: Exam Narrative: General: Slightly agitated. No tremor. Awake, alert, oriented x3. No pallor. No jaundice. Oropharynx: Clear. Mucous membranes moist. Cardiovascular: Mildly tachycardic, regular. No murmurs, gallops, or rubs. Respiratory: Clear to auscultation bilaterally. No wheezes or crackles. Abdomen: Bowel sounds present. Soft, nondistended, nontender. Extremities: No pedal edema. Const: Vital Signs, click to edit/add: Vital Signs - 24 hr 07/07/24 10:39 07/07/24 11:09 07/07/24 11:10 Temperature 98.2 F Pulse Rate 143 H 134 H Pulse Rate [Left R adial] Pulse Rate [Pulse Oximeter] 149 H Respiratory Rate 18 Blood Pressure 120/86 Blood Pressure [Le ft Arm] Blood Pressure [Ri ght Upper Arm] 90/64 Pulse Oximetry 99 100 100 Oxygen Delivery Me thod Room Air 07/07/24 11:15 07/07/24 11:30 07/07/24 11:32 Temperature Pulse Rate 129 H 139 H 138 H Pulse Rate [Left R adial] Pulse Rate [Pulse Oximeter] Respiratory Rate Blood Pressure 131/91 H Blood Pressure [Le ft Arm] Blood Pressure [Ri ght Upper Arm] Pulse Oximetry 100 100 100 Oxygen Delivery Me thod 07/07/24 11:45 07/07/24 12:00 07/07/24 12:02 Temperature Pulse Rate 142 H 132 H 139 H Pulse Rate [Left R adial] Pulse Rate [Pulse Oximeter] Respiratory Rate Blood Pressure 123/97 H Blood Pressure [Le ft Arm] Blood Pressure [Ri ght Upper Arm] Pulse Oximetry 100 100 100 Oxygen Delivery Me thod 07/07/24 12:03 07/07/24 12:15 07/07/24 12:30 Temperature Pulse Rate 142 H 134 H 129 H Pulse Rate [Left R adial] Pulse Rate [Pulse Oximeter] Respiratory Rate Blood Pressure Blood Pressure [Le ft Arm] Blood Pressure [Ri ght Upper Arm] Pulse Oximetry 100 99 99 Oxygen Delivery Me thod 07/07/24 12:32 07/07/24 12:45 07/07/24 13:00 Temperature Pulse Rate 130 H 125 H 131 H Pulse Rate [Left R adial] Pulse Rate [Pulse Oximeter] Respiratory Rate Blood Pressure 128/94 H Blood Pressure [Le ft Arm] Blood Pressure [Ri ght Upper Arm] Pulse Oximetry 98 99 98 Oxygen Delivery Me thod 07/07/24 13:02 07/07/24 13:15 07/07/24 13:30 Temperature Pulse Rate 129 H 123 H 138 H Pulse Rate [Left R adial] Pulse Rate [Pulse Oximeter] Respiratory Rate Blood Pressure 120/87 Blood Pressure [Le ft Arm] Blood Pressure [Ri ght Upper Arm] Pulse Oximetry 100 99 97 Oxygen Delivery Me thod 07/07/24 13:32 07/07/24 13:33 07/07/24 13:45 Temperature Pulse Rate 139 H 138 H 135 H Pulse Rate [Left R adial] Pulse Rate [Pulse Oximeter] Respiratory Rate Blood Pressure 136/96 H Blood Pressure [Le ft Arm] Blood Pressure [Ri ght Upper Arm] Pulse Oximetry 98 98 97 Oxygen Delivery Me thod 07/07/24 14:32 07/07/24 16:00 07/07/24 16:06 Temperature 99.9 F H Pulse Rate 141 H Pulse Rate [Left R adial] 150 H Pulse Rate [Pulse Oximeter] Respiratory Rate 20 20 Blood Pressure Blood Pressure [Le ft Arm] 140/97 H Blood Pressure [Ri ght Upper Arm] Pulse Oximetry 98 100 Oxygen Delivery Me thod Room Air Room Air 07/07/24 16:11 07/07/24 16:19 07/07/24 16:35 Temperature 99.1 F 99.1 F Pulse Rate Pulse Rate [Left R adial] 150 H Pulse Rate [Pulse Oximeter] 140 H 140 H Respiratory Rate 20 20 Blood Pressure Blood Pressure [Le ft Arm] 131/95 H 131/95 H Blood Pressure [Ri ght Upper Arm] Pulse Oximetry 100 100 100 Oxygen Delivery Me thod Room Air Room Air Room Air 07/07/24 16:36 07/07/24 17:15 07/07/24 17:16 Temperature 98.7 F 98.7 F Pulse Rate Pulse Rate [Left R adial] Pulse Rate [Pulse Oximeter] 147 H 147 H Respiratory Rate 18 18 Blood Pressure Blood Pressure [Le ft Arm] 143/103 H 143/103 H Blood Pressure [Ri ght Upper Arm] Pulse Oximetry 100 100 100 Oxygen Delivery Id thod Room Air Room Air 07/07/24 18:11 07/07/24 18:12 07/07/24 18:36 Temperature 98.7 F 98.7 F Pulse Rate Pulse Rate [Left R adial] 150 H Pulse Rate [Pulse Oximeter] 130 H 130 H Respiratory Rate 20 20 18 Blood Pressure Blood Pressure [Le ft Arm] 138/97 H 138/97 H Blood Pressure [Ri ght Upper Arm] Pulse Oximetry 100 100 100 Oxygen Delivery Id thod Room Air Room Air Room Air 07/07/24 19:04 07/07/24 19:06 07/07/24 20:00 Temperature 99.4 F 99.4 F Pulse Rate 120 H Pulse Rate [Left R adial] 150 H Pulse Rate [Pulse Oximeter] 123 H 123 H Respiratory Rate 20 20 Blood Pressure Blood Pressure [Le ft Arm] 131/95 H 131/95 H Blood Pressure [Ri ght Upper Arm] Pulse Oximetry 100 100 Oxygen Delivery Id thod Room Air 07/07/24 20:00 07/07/24 20:00 07/07/24 22:00 Temperature 99.3 F 99.6 F Pulse Rate Pulse Rate [Left R adial] Pulse Rate [Pulse Oximeter] 123 H 121 H 121 H Respiratory Rate 16 16 18 Blood Pressure Blood Pressure [Le ft Arm] 119/97 H 115/91 H Blood Pressure [Ri ght Upper Arm] Pulse Oximetry 99 100 Oxygen Delivery Id thod Room Air Room Air 07/07/24 22:00 07/08/24 00:00 07/08/24 00:00 Temperature 99.6 F Pulse Rate 109 H Pulse Rate [Left R adial] Pulse Rate [Pulse Oximeter] 121 H 107 H Respiratory Rate 18 16 Blood Pressure Blood Pressure [Le ft Arm] 115/91 H 113/88 Blood Pressure [Ri ght Upper Arm] Pulse Oximetry 100 100 Oxygen Delivery Id thod Room Air Room Air 07/08/24 01:00 07/08/24 02:00 07/08/24 04:00 Temperature 98.9 F Pulse Rate Pulse Rate [Left R adial] Pulse Rate [Pulse Oximeter] 133 H 115 H 103 H Respiratory Rate 16 16 16 Blood Pressure Blood Pressure [Le ft Arm] 98/78 106/76 107/81 Blood Pressure [Ri ght Upper Arm] Pulse Oximetry 99 99 100 Oxygen Delivery Id thod Room Air Room Air Room Air 07/08/24 04:20 07/08/24 06:00 07/08/24 06:00 Temperature 99.1 F 99.1 F Pulse Rate 100 Pulse Rate [Left R adial] Pulse Rate [Pulse Oximeter] 101 H 101 H Respiratory Rate 16 16 Blood Pressure Blood Pressure [Le ft Arm] 99/77 99/77 Blood Pressure [Ri ght Upper Arm] Pulse Oximetry 94 94 Oxygen Delivery Id thod Room Air Room Air 07/08/24 07:00 07/08/24 08:00 07/08/24 08:00 Temperature 98.7 F Pulse Rate 100 Pulse Rate [Left R adial] Pulse Rate [Pulse Oximeter] 106 H 106 H Respiratory Rate 18 18 Blood Pressure Blood Pressure [Le ft Arm] 101/78 Blood Pressure [Ri ght Upper Arm] Pulse Oximetry 96 Oxygen Delivery Id thod Room Air Labs Labs: Laboratory Results - last 24 hr 07/07/24 07/07/24 07/07/24 11:10 11:25 11:45 WBC 15.95 H RBC 3.17 L Hgb 12.0 Hct 32.1 L MCV 101 H MCH 38 H MCHC 37 H RDW Coeff of Sylvain 19.1 H Plt Count 249 Neut % (Auto) 83.5 H Lymph % (Auto) 11.9 L Dewitt % (Auto) 4.0 Eos % (Auto) 0.1 Baso % (Auto) 0.1 Neut # (Auto) 13.30 H Lymph # (Auto) 1.90 Dewitt # (Auto) 0.60 Eos # (Auto) 0.00 Baso # (Auto) 0.00 Abs Immat Gran (auto) 0.10 Imm/Tot Granulo (auto) 0.4 INR 0.97 VBG pH 7.532 H VBG pCO2 46 VBG pO2 < 30.1 VBG HCO3 38 H Sodium 124 L* Potassium 1.7 L* Chloride 73 L Carbon Dioxide 34 H Anion Gap 17 H BUN 4 L Creatinine 0.3 L Estimated Creat Clear 190.46 Estimated GFR 135 Glucose 100 Lactate Calcium 8.1 L Ionized Calcium Reji 0.92 L Phosphorus Magnesium 1.8 Total Bilirubin 1.9 H Direct Bilirubin 0.9 H GGT 1009 H AST 335 H ALT 138 H Alkaline Phosphatase 246 H Total Creatine Kinase Troponin I C-Reactive Protein 2.2 H NT-Pro-B Natriuret Pep 1000 Total Protein 6.6 Albumin 3.3 Lipase Procalcitonin 0.25 TSH 1.920 HCG, Qual Urine Color Urine Appearance Urine pH Ur Specific [place] Urine Protein Urine Glucose (UA) Urine Ketones Urine Blood Urine Nitrite Urine Bilirubin Urine Urobilinogen Ur Leukocyte Esterase Urine RBC Urine WBC Ur Squamous Epith Cells Urine Bacteria Urine HCG, Qual Stl C. diff Tox B Gene Stl C. diff [id number] Urine Opiates Screen Ur Oxycodone Screen Urine Methadone Screen Ur Barbiturates Screen U Tricyclic Antidepress Ur Phencyclidine Scrn Ur Amphetamines Screen U Methamphetamines Scrn U Benzodiazepines Scrn Urine Cocaine Screen U Marijuana (THC) Screen Ur Drug Screen Comment Ethyl Alcohol 0.08 H SARS-CoV-2 (PCR) Negative SARS-CoV-2 Influenza Type A (PCR) Negative PCR FLU A Influenza Type B (PCR) Negative PCR FLU B RSV (PCR) Negative PCR RSV Lab Acknowledgement POC Troponin I 0.01 07/07/24 07/07/24 07/07/24 14:10 14:13 14:24 WBC RBC Hgb Hct MCV MCH MCHC RDW Coeff of Sylvain Plt Count Neut % (Auto) Lymph % (Auto) Dewitt % (Auto) Eos % (Auto) Baso % (Auto) Neut # (Auto) Lymph # (Auto) Dewitt # (Auto) Eos # (Auto) Baso # (Auto) Abs Immat Gran (auto) Imm/Tot Granulo (auto) INR VBG pH 7.558 H VBG pCO2 44 VBG pO2 < 30.1 VBG HCO3 39 H Sodium 125 L Potassium 1.7 L* Chloride 76 L Carbon Dioxide 37 H Anion Gap 12 BUN 5 Creatinine 0.3 L Estimated Creat Clear 190.63 Estimated GFR 135 Glucose 105 Lactate Calcium 7.3 L Ionized Calcium Reji 0.90 L Phosphorus Magnesium Total Bilirubin 2.1 H Direct Bilirubin GGT AST 271 H ALT 110 H Alkaline Phosphatase 206 H Total Creatine Kinase 80 Troponin I C-Reactive Protein NT-Pro-B Natriuret Pep Total Protein 5.7 L Albumin 2.6 L Lipase 332 H Procalcitonin TSH HCG, Qual Urine Color Red A Urine Appearance Cloudy A Urine pH 6.5 Ur Specific [place] 1.020 Urine Protein 2+ A Urine Glucose (UA) Negative Urine Ketones 1+ A Urine Blood Trace-intact A Urine Nitrite Positive A Urine Bilirubin 2+ A Urine Urobilinogen >=8.0 A Ur Leukocyte Esterase Negative Urine RBC 0-2 Urine WBC 0-2 Ur Squamous Epith Cells Few Urine Bacteria Many A Urine HCG, Qual Negative Stl C. diff Tox B Gene Stl C. diff [id number] Urine Opiates Screen Negative Ur Oxycodone Screen Negative Urine Methadone Screen Negative Ur Barbiturates Screen Negative U Tricyclic Antidepress Negative Ur Phencyclidine Scrn Negative Ur Amphetamines Screen Negative U Methamphetamines Scrn Negative U Benzodiazepines Scrn Negative Urine Cocaine Screen Negative U Marijuana (THC) Screen POSITIVE A Ur Drug Screen Comment See Note Ethyl Alcohol SARS-CoV-2 (PCR) Influenza Type A (PCR) Influenza Type B (PCR) RSV (PCR) Lab Acknowledgement Test Added POC Troponin I 07/07/24 07/07/24 07/07/24 15:15 16:06 16:40 WBC RBC Hgb Hct MCV MCH MCHC RDW Coeff of Sylvain Plt Count Neut % (Auto) Lymph % (Auto) Dewitt % (Auto) Eos % (Auto) Baso % (Auto) Neut # (Auto) Lymph # (Auto) Dewitt # (Auto) Eos # (Auto) Baso # (Auto) Abs Immat Gran (auto) Imm/Tot Granulo (auto) INR VBG pH VBG pCO2 VBG pO2 VBG HCO3 Sodium Potassium Chloride Carbon Dioxide Anion Gap BUN Creatinine Estimated Creat Clear Estimated GFR Glucose Lactate Calcium Ionized Calcium Reji Phosphorus Magnesium Total Bilirubin Direct Bilirubin GGT AST ALT Alkaline Phosphatase Total Creatine Kinase Troponin I C-Reactive Protein NT-Pro-B Natriuret Pep Total Protein Albumin Lipase Procalcitonin TSH HCG, Qual Urine Color Urine Appearance Urine pH Ur Specific [place] Urine Protein Urine Glucose (UA) Urine Ketones Urine Blood Urine Nitrite Urine Bilirubin Urine Urobilinogen Ur Leukocyte Esterase Urine RBC Urine WBC Ur Squamous Epith Cells Urine Bacteria Urine HCG, Qual Stl C. diff Tox B Gene Negative Stl C. diff [id number] PRESUMPTIVE NEGATIVE Urine Opiates Screen Ur Oxycodone Screen Urine Methadone Screen Ur Barbiturates Screen U Tricyclic Antidepress Ur Phencyclidine Scrn Ur Amphetamines Screen U Methamphetamines Scrn U Benzodiazepines Scrn Urine Cocaine Screen U Marijuana (THC) Screen Ur Drug Screen Comment Ethyl Alcohol SARS-CoV-2 (PCR) Influenza Type A (PCR) Influenza Type B (PCR) RSV (PCR) Lab Acknowledgement Test Added Test Added POC Troponin I 07/07/24 07/07/24 07/07/24 16:47 18:36 20:24 WBC RBC Hgb Hct MCV MCH MCHC RDW Coeff of Sylvain Plt Count Neut % (Auto) Lymph % (Auto) Dewitt % (Auto) Eos % (Auto) Baso % (Auto) Neut # (Auto) Lymph # (Auto) Dewitt # (Auto) Eos # (Auto) Baso # (Auto) Abs Immat Gran (auto) Imm/Tot Granulo (auto) INR VBG pH 7.484 H VBG pCO2 52 H VBG pO2 33.6 VBG HCO3 39 H Sodium 125 L Potassium 1.6 L* Chloride 77 L Carbon Dioxide 37 H Anion Gap 11 BUN 5 Creatinine 0.3 L Estimated Creat Clear 190.63 Estimated GFR 135 Glucose 114 Lactate Calcium 7.7 L Ionized Calcium Reji 0.96 L Phosphorus 2.1 L Magnesium 2.1 Total Bilirubin Direct Bilirubin GGT AST ALT Alkaline Phosphatase Total Creatine Kinase Troponin I 0.02 C-Reactive Protein NT-Pro-B Natriuret Pep Total Protein Albumin Lipase Procalcitonin TSH HCG, Qual Urine Color Urine Appearance Urine pH Ur Specific [place] Urine Protein Urine Glucose (UA) Urine Ketones Urine Blood Urine Nitrite Urine Bilirubin Urine Urobilinogen Ur Leukocyte Esterase Urine RBC Urine WBC Ur Squamous Epith Cells Urine Bacteria Urine HCG, Qual Stl C. diff Tox B Gene Stl C. diff [id number] Urine Opiates Screen Ur Oxycodone Screen Urine Methadone Screen Ur Barbiturates Screen U Tricyclic Antidepress Ur Phencyclidine Scrn Ur Amphetamines Screen U Methamphetamines Scrn U Benzodiazepines Scrn Urine Cocaine Screen U Marijuana (THC) Screen Ur Drug Screen Comment Ethyl Alcohol SARS-CoV-2 (PCR) Influenza Type A (PCR) Influenza Type B (PCR) RSV (PCR) Lab Acknowledgement Test Added Test Added POC Troponin I 07/08/24 07/08/24 07/08/24 00:20 06:30 09:10 WBC 10.85 10.01 RBC 2.26 L 2.11 L Hgb 8.5 L 8.0 L Hct 23.5 L 22.2 L MCV 104 H 105 H MCH 38 H 38 H MCHC 36 36 RDW Coeff of Sylvain 20.4 H Plt Count 168 160 Neut % (Auto) 64.8 Lymph % (Auto) 29.4 Dewitt % (Auto) 4.6 Eos % (Auto) 0.7 Baso % (Auto) 0.2 Neut # (Auto) 6.49 Lymph # (Auto) 2.94 H Dewitt # (Auto) 0.50 Eos # (Auto) 0.07 Baso # (Auto) 0.02 Abs Immat Gran (auto) 0.03 Imm/Tot Granulo (auto) 0.3 INR VBG pH 7.506 H 7.548 H VBG pCO2 54 H 48 VBG pO2 < 30.1 64.3 H VBG HCO3 43 H 42 H Sodium 127 L 131 L Potassium 2.7 L* 3.7 Chloride 81 L 88 L Carbon Dioxide 40 H 39 H Anion Gap 6 L 4 L BUN 4 L 5 Creatinine 0.3 L 0.3 L Estimated Creat Clear 190.63 191.24 Estimated GFR 135 135 Glucose 98 96 Lactate 3.7 H 1.9 Calcium 7.8 L 7.7 L Ionized Calcium Reji 0.99 L 1.02 L Phosphorus 1.8 L 2.4 L Magnesium 2.1 2.9 H Total Bilirubin 1.8 H Direct Bilirubin 0.6 H GGT AST 249 H ALT 100 H Alkaline Phosphatase 174 H Total Creatine Kinase Troponin I C-Reactive Protein 3.0 H NT-Pro-B Natriuret Pep Total Protein 5.3 L Albumin 2.5 L Lipase 364 H Procalcitonin TSH HCG, Qual Negative Urine Color Urine Appearance Urine pH Ur Specific [place] Urine Protein Urine Glucose (UA) Urine Ketones Urine Blood Urine Nitrite Urine Bilirubin Urine Urobilinogen Ur Leukocyte Esterase Urine RBC Urine WBC Ur Squamous Epith Cells Urine Bacteria Urine HCG, Qual Stl C. diff Tox B Gene Stl C. diff [id number] Urine Opiates Screen Ur Oxycodone Screen Urine Methadone Screen Ur Barbiturates Screen U Tricyclic Antidepress Ur Phencyclidine Scrn Ur Amphetamines Screen U Methamphetamines Scrn U Benzodiazepines Scrn Urine Cocaine Screen U Marijuana (THC) Screen Ur Drug Screen Comment Ethyl Alcohol SARS-CoV-2 (PCR) Influenza Type A (PCR) Influenza Type B (PCR) RSV (PCR) Lab Acknowledgement Test Added POC Troponin I
[2024-07-08] MEDS: LORazepam 0.5 MG TABLET PO ×2 (10:12→17:45)
[2024-07-08] MEDS: CALCIUM GLUC 1,000MG/50 ML 1,000 MG/50 ML BAG 100 MG IVPB ×2 (10:45→12:36)
[2024-07-08] MEDS: PHENobarbitaL 260 MG in 0.9 % SODIUM CHLORIDE 100 ml 100 ML 208 MG IVPB (11:45)
[2024-07-08] MEDS: LOPERAMIDE HCL 2 MG CAPSULE PO (16:46)
[2024-07-08] MEDS: POTASSIUM CHLORIDE 10 MEQ CAPSULE ER PO (17:42)
[2024-07-08] MEDS: ACETAMINOPHEN 325 MG TABLET 650 MG PO (17:45)
--- NOTE | 2024-07-08 18:42 | PC.NURSE ---
PATIENT DENIES N/V AND TOLERATING REGULAR DIET BUT DOES EXPERIENCE FREQUENT LOOSE/LIQUID STOOLS AFTER EATING. DISCUSSED DIET AND ORDER OBTAINED FOR IMMODIUM WHICH WAS ADMINSTERED. CIWA SCORE MAX OF 10 TWICE. TREATED WITH PRN ATIVAN AND SCHEDULED PHENOBARBITAL. PATIENT REPORTING NUMBNESS AND TINGLING TO FEET WHICH SHE STATES OCCURRED WHEN SHE HAS WITHDRAWN IN THE PAST. PATIENT ANXIOUS AND TEARFUL INTERMITTENTLY AND C/O HEADACHE. UP WITH SBA TO COMMODE.
[2024-07-08] MEDS: PHENobarbitaL 32.4 MG TABLET 97.2 MG PO (21:31)
[2024-07-08] MEDS: CIPROFLOXACIN 500 MG TABLET PO (21:32)
[2024-07-08] MEDS: ENOXAPARIN 40 MG/0.4 ML INJ SUBCUT (21:32)
[2024-07-08] MEDS: SODIUM CHLORIDE 0.9 % (FLUSH) 10 ML SYRINGE 5 ML IVF (21:33)
[2024-07-09] VITALS (15 sets, daily range): BP systolic 98–128; BP diastolic 72–96; PULSE 90–116; RESP 16–20; TEMP 36.3–37.1; O2SAT 97–100
[2024-07-09] MEDS: LORazepam 0.5 MG TABLET PO ×3 (00:37→21:40)
[2024-07-09] MEDS: HYDROmorphone 0.5 mg/0.5 ml inj IVP ×2 (05:04→22:06)
[2024-07-09] MEDS: SODIUM CHLORIDE 0.9 % (FLUSH) 10 ML SYRINGE 5 ML IVF ×3 (05:05→21:41)
[2024-07-09] MEDS: metroNIDAZOLE 500 MG/100 ML PIGGYBACK 100 MG IVPB ×3 (06:07→21:42)
[2024-07-09] MEDS: ACETAMINOPHEN 325 MG TABLET 650 MG PO (06:07)
[2024-07-09] MEDS: OMEPRAZOLE 20 MG CAPSULE DR 40 MG PO (06:07)
--- NOTE | 2024-07-09 06:57 | PC.NURSE ---
End of shift [id number]: Oriented x 4.? Patient drowsy this shift, easily awakened to verbal stimuli.? Reporting a mild headache? throughout the evening, at 0500 patient placed call light on and was tearful and crying stating she has a terrible headache 7/10, PRN medication effective for pain.? Patient had episodes of tearfulness throughout the shift over varying pain throughout body and numbness to lower extremities.? Patient becomes anxious over pain and numbness and becomes tachypneic, patient responding well to therapeutic conversation and PRN medication for anxiety.? Transfers and ambulates with min assist x 1, increased weakness and numbness to lower extremities makes patient feel unsteady per her report.??
[2024-07-09 07:33] LABS: HCO3 VBG 35 mmol/L (21-28); Ionized Calcium* 1.06 mmol/L (1.11-1.30); PCO2 VBG 43 mmHG (40-50); pH VBG 7.512 (7.32-7.43)
[2024-07-09 07:42] LABS: Basophils Absolute Auto 0.04 K/uL (0.00-0.30); Basophils Percent Auto 0.6 % (0.0-3.0); Eosinophils Absolute Auto 0.09 K/uL (0.00-0.50); Eosinophils Percent Auto 1.2 % (0.0-7.0); Hematocrit 22.5 % (33.0-51.0); Immature Granulocytes Abs Auto 0.03 K/uL (0.00-0.30); Immature Granulocytes Pct Auto 0.4 %; Lymphocytes Absolute Auto 2.05 K/uL (0.90-2.90); Lymphocytes Percent Auto 28.2 % (20-44); Mean Corpuscular HGB Conc 33 gm/dL (32-36); Mean Corpuscular Hemoglobin 37 pg (26-34); Mean Corpuscular Volume 112 fL (80-100); Monocytes Percent Auto 4.7 % (0.0-11.0); Neutrophils Absolute Auto 4.71 K/uL (1.7-7.0); Neutrophils Percent Auto 64.9 % (42.0-72.0); Platelet Count* 145 K/uL (140-440); RDW Coefficient of Variation % 21.9 % (11.5-15.5); Red Blood Count 2.01 m/uL (4.00-5.20); White Blood Count* 7.26 K/uL (4.50-11.00)
[2024-07-09 07:52] LABS: Hemoglobin* 7.5 gm/dL (12.0-16.0); Slide Review Reflex Yes
[2024-07-09 08:01] LABS: Albumin* 2.4 g/dL (3.3-5.0); Chloride* 94 mmol/L (96-114)
[2024-07-09 08:02] LABS: Potassium* 4.3 mmol/L (3.6-5.1); Sodium* 129 mmol/L (135-149)
[2024-07-09 08:04] LABS: Anion Gap 1 mEq/L (7-15); Aspartate Amino Transferase* 191 U/L (12-35); Bilirubin Direct* 0.4 mg/dL (0.0-0.5); Bilirubin Total* 0.9 mg/dL (0.1-1.5); Carbon Dioxide* 34 mmol/L (20-32); Creatinine* 0.3 mg/dL (0.5-1.5); Est. Creatinine Clearance* 191.24; Estimated Glomerular Filt Rate 135 ml/min; Total Protein* 5.1 g/dL (6.0-8.3)
[2024-07-09 08:05] LABS: Alanine Aminotransferase* 97 U/L (4-35); Alkaline Phosphatase* 152 U/L (40-150); Blood Urea Nitrogen* 8 mg/dL (5-24); Calcium* 7.7 mg/dL (8.4-10.6); Glucose* 84 mg/dL (60-115)
[2024-07-09 08:07] LABS: C Reactive Protein* 2.2 mg/dL (0.5-1.0)
[2024-07-09 08:18] LABS: Slide Review Acceptable Review (Acceptable)
[2024-07-09] MEDS: LOPERAMIDE HCL 2 MG CAPSULE PO (08:48)
[2024-07-09] MEDS: POTASSIUM CHLORIDE 10 MEQ CAPSULE ER PO (09:15)
[2024-07-09] MEDS: GABAPENTIN 100 MG CAPSULE 300 MG PO ×3 (09:15→21:41)
[2024-07-09] MEDS: MULTIVITAMIN/MINERALS 1 TABLET 1 TAB PO (09:16)
[2024-07-09] MEDS: FOLIC ACID 1 MG TABLET PO (09:16)
[2024-07-09] MEDS: CIPROFLOXACIN 500 MG TABLET PO ×2 (09:16→21:41)
[2024-07-09] MEDS: THIAMINE 250 MG in 0.9 % SODIUM CHLORIDE 100 ml 100 ML 100 MG IVPB ×3 (09:18→21:41)
--- NOTE | 2024-07-09 16:31 | P.IMPN_ITS ---
Progress Note: A&P Assessment and plan (1) Pancolitis: Problem details: -on admission CT . Clinically improving. 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 -crp minimally elevated; neg CDIFF, GI pathogen pending, does have an elevated white count and temps of 99 and UTI so antibiotics were started (Cipro/Flagyl IV) Status: Acute (2) Alcohol withdrawal: Problem details: [facility] protocol. Phenobarb and gabapentin. Improving Status: Acute (3) Acute hypokalemia: Problem details: oral and IV replacement mag replacement Status: Resolved (4) Hypomagnesemia: Problem details: Resolved with replacement Status: Resolved (5) Hypocalcemia: Problem details: Improved. Start oral calcium Status: Acute (6) Metabolic alkalosis: Problem details: Cause for this is a little unclear. Could be contraction alkalosis from vomiting and diarrhea. Continue to monitor and address. Status: Acute (7) Hypophosphatemia: Problem details: Monitor Status: Acute (8) Abdominal pain: Problem details: Having only mild pain but relatively diffuse tenderness. CT shows colitis possibly infectious verses side effect of liver disease and portal hypertension Status: Acute (9) Hyponatremia: Problem details: monitor; fluid restriction NS bolus given - 07/08 sodium improving, 131 today. Symptoms also improving. No longer nauseous or vomiting. I think this is likely secondary to volume depletion and malnutrition due to alcohol use. Encourage good oral intake of food and fluids. Remove fluid restriction. Start nutritional supplements 3 times a day. Nutrition consult. Status: Acute (10) Alcoholic liver disease: Problem details: stigmata: transaminitis; hypoalbuminemia, peripheral edema, electrolyte imbalance, malnourished BUT no thrombocytopenia, anemia. INR normal. MELDNa score 21; 7-10% 90 day mortality SBP still on radar but less likely without ascites. - 07/08 Afebrile. WBC wnl. LFTs stable. Abdomen nontender. Hepatitis panel pending. No thrombocytopenia today. After hydration hemoglobin is lower at 8, stable. Monitor. I think SBP remains less likely. Continue to monitor. Encourage abstinence. Social Work to see. Status: Acute (11) Tobacco dependence: Problem details: nicotine patch Status: Acute (12) Tetrahydrocannabinol (THC) dependence: Status: Acute Plan Continue in hospital for management of fluid and electrolyte problems, advancing diet, therapy to get her up on her feet, monitoring and management alcohol withdrawal. Time Spent With Patient Total time spent: Total time spent today is 60 minutes in coordination of care and evaluation and management of multiple problems noted above Subjective Date Seen: 07/09/24 Interval history: 43-year-old female with longstanding history of alcohol use disorder, tobacco abuse and marijuana dependence and anxiety admitted to the hospital with weakness dizziness abdominal pain and diarrhea. Symptoms have been present for a couple months. She reports that she has been primarily drinking alcohol and not eating much in the last couple months. She is admitted to the hospital with monitoring and treatment of alcohol withdrawal. She was noted to have marked abnormalities in fluid and electrolyte status with severe hypokalemia, metabolic alkalosis, hyponatremia, hypocalcemia, hypoalbuminemia and dehydration. These were addressed with initially IV then oral replacement. She has been receiving gabapentin, phenobarb and lorazepam for alcohol withdrawal with good management of symptoms. Transaminases are improving. She is beginning to eat a normal diet. Diarrhea is improved. 07/09/2024: Patient reports that she slept well last night. The 1st good night asleep in a long time she reports. She reports still being weak and having troubles getting around. No visual disturbance. Exam Narrative: Exam Narrative: She is alert and appears in no distress. She is not tremulous. She is awakened from a fairly sounds sleep initially. Eyes normal. Oropharynx normal. Extraocular movements are normal with no diplopia or dysconjugate gaze. Neck is supple without mass or adenopathy. Respirations are clear to auscultation. Cardiovascular: S1, S2, regular rate and rhythm. Abdomen is soft with mild diffuse tenderness. Extremities without edema. She moves all 4 extremities well. No significant tremor Const: Vital Signs, click to edit/add: Vital Signs - 24 hr 07/08/24 18:00 07/08/24 19:00 07/08/24 20:00 Temperature 98.7 F 98.4 F Pulse Rate 106 H Pulse Rate [Pulse Oximeter] 114 H 103 H Respiratory Rate 16 16 Blood Pressure [Le ft Arm] 123/94 H 108/83 Pulse Oximetry 96 94 Oxygen Delivery Me thod Room Air Room Air 07/08/24 21:49 07/08/24 22:00 07/08/24 23:00 Temperature 98.1 F 98.1 F Pulse Rate 109 H Pulse Rate [Pulse Oximeter] 118 H 118 H Respiratory Rate 18 18 Blood Pressure [Le ft Arm] 101/75 101/75 Pulse Oximetry 98 98 Oxygen Delivery Me thod Room Air Room Air 07/08/24 23:00 07/09/24 00:00 07/09/24 02:00 Temperature 98.0 F 98.4 F Pulse Rate Pulse Rate [Pulse Oximeter] 118 H 111 H 103 H Respiratory Rate 18 20 16 Blood Pressure [Le ft Arm] 108/79 98/74 Pulse Oximetry 98 98 Oxygen Delivery Me thod Room Air Room Air 07/09/24 02:56 07/09/24 04:00 07/09/24 06:00 Temperature 97.4 F L 98.1 F Pulse Rate 111 H Pulse Rate [Pulse Oximeter] 113 H 116 H Respiratory Rate 18 16 Blood Pressure [Le ft Arm] 109/83 101/72 Pulse Oximetry 97 98 Oxygen Delivery Me thod Room Air Room Air 07/09/24 07:00 07/09/24 08:00 07/09/24 08:00 Temperature 98.1 F Pulse Rate 103 H Pulse Rate [Pulse Oximeter] 103 H 103 H Respiratory Rate 16 16 Blood Pressure [Le ft Arm] 122/92 H Pulse Oximetry 100 Oxygen Delivery Mi thod Room Air 07/09/24 10:00 07/09/24 11:30 07/09/24 15:00 Temperature 98.1 F 98.8 F Pulse Rate 113 H Pulse Rate [Pulse Oximeter] 103 H 99 Respiratory Rate 16 16 Blood Pressure [Le ft Arm] 122/92 H 120/90 H Pulse Oximetry 100 98 Oxygen Delivery Me thod Room Air Room Air Documenting provider has reviewed patient's vital signs: yes Labs Labs: Laboratory Results - last 24 hr 07/09/24 06:51 WBC 7.26 RBC 2.01 L Hgb 7.5 L* Hct 22.5 L MCV 112 H MCH 37 H MCHC 33 RDW Coeff of Sylvain 21.9 H Plt Count 145 Neut % (Auto) 64.9 Lymph % (Auto) 28.2 [place] % (Auto) 4.7 Eos % (Auto) 1.2 Baso % (Auto) 0.6 Neut # (Auto) 4.71 Lymph # (Auto) 2.05 [place] # (Auto) 0.30 Eos # (Auto) 0.09 Baso # (Auto) 0.04 Abs Immat Gran (auto) 0.03 Imm/Tot Granulo (auto) 0.4 Diff Slide Review Acceptable Review VBG pH 7.512 H VBG pCO2 43 VBG pO2 77.0 H VBG HCO3 35 H Sodium 129 L Potassium 4.3 Chloride 94 L Carbon Dioxide 34 H Anion Gap 1 L BUN 8 Creatinine 0.3 L Estimated Creat Clear 191.24 Estimated GFR 135 Glucose 84 Calcium 7.7 L Ionized Calcium Reji 1.06 L Magnesium 2.0 Total Bilirubin 0.9 Direct Bilirubin 0.4 AST 191 H ALT 97 H Alkaline Phosphatase 152 H C-Reactive Protein 2.2 H Total Protein 5.1 L Albumin 2.4 L
--- NOTE | 2024-07-09 18:39 | PC.NURSE ---
PATIENT UP WITH A1 AND GAIT BELT TO RECLINER AND COMMODE. UNSTEADY AT TIMES AND REPORTS FEELING WEAK. DENIES NAUSEA WITH MEALS BUT OCCASIONAL LOOSE STOOL. TEARFUL AND ANXIOUS AT TIMES BUT REDIRECTED WITH ENCOURAGEMENT AND SUPPORT. REPORTS INTERMITTENT ABDOMINAL CRAMPING BUT STATES BLOATING FEELS IMPROVED.
[2024-07-09 21:06] LABS: Hep A Ab, IgM Negative (Negative); Hep B Core Ab, IgM Negative (Negative); Hep B Surface Antigen Negative (Negative); Hep C Ab by CIA Index 0.22 IV; Hep C Ab by CIA Interp Negative (Negative)
[2024-07-09] MEDS: PHENobarbitaL 32.4 MG TABLET 97.2 MG PO (21:40)
[2024-07-09] MEDS: ENOXAPARIN 40 MG/0.4 ML INJ SUBCUT (21:42)
[2024-07-10] VITALS (12 sets, daily range): BP systolic 107–124; BP diastolic 67–86; PULSE 91–995; RESP 16–18; TEMP 36.7–37.3; O2SAT 97–100
[2024-07-10 04:54] LABS: Adenovirus PCR Not Detected; Astrovirus PCR Not Detected; Campylobacter PCR Not Detected; Cryptosporidium PCR Not Detected; Cyclospora cayetanensis PCR Not Detected; Entamoeba histolytica PCR Not Detected; Enteroaggregative E coli PCR Not Detected; Enteropathogenic E coli PCR Not Detected; Enterotoxigenic E coli PCR Not Detected; Giardia lamblia PCR Not Detected; Norovirus Gi/GII PCR Not Detected; Plesiomonas shig PCR Not Detected; Rotavirus A PCR Not Detected; Salmonella PCR Not Detected; Sapovirus PCR Not Detected; Shiga toxin E coli PCR Not Detected; Shigella/Enteroinvasive E coli Not Detected; Vibrio PCR Not Detected; Vibrio cholerae PCR Not Detected; Yersinia enterocolitica PCR Not Detected
[2024-07-10] MEDS: metroNIDAZOLE 500 MG/100 ML PIGGYBACK 100 MG IVPB (05:51)
[2024-07-10] MEDS: LORazepam 0.5 MG TABLET PO (05:58)
[2024-07-10] MEDS: ACETAMINOPHEN 325 MG TABLET 650 MG PO ×2 (05:59→21:26)
[2024-07-10] MEDS: OMEPRAZOLE 20 MG CAPSULE DR 40 MG PO (05:59)
--- NOTE | 2024-07-10 06:32 | PC.NURSE ---
End of shift report [id number]: Alert and oriented x 4. Reports intermittent pains to abdomen, pain is consistently a 3 but will increase to7 with deep breathing or coughing. Pain is in LUQ beneath rib cage and is a dull ache at rest but becomes a sharp, stabbing pain. Bowel sounds active x 4 quadrants, denies any nausea or vomiting and tolerating liquids and bland diet. Patient also reporting headache above left eye and extending up to top of head. Pain is reported as tender to touch and is superficial and not deep in her head. Denies any sensitivity to light or change in vision with head pain. Patient continues to have intermittent anxiety that affects patient's ability to complete self care, patient will become visibly shaky, tachycardic and tachypneic with episodes. PRN lorazepam utilized with effective results. Transfers and ambulates with SBA to minimal assist x 1.
[2024-07-10 06:58] LABS: Basophils Absolute Auto 0.05 K/uL (0.00-0.30); Basophils Percent Auto 0.6 % (0.0-3.0); Eosinophils Absolute Auto 0.12 K/uL (0.00-0.50); Eosinophils Percent Auto 1.5 % (0.0-7.0); Hematocrit 22.6 % (33.0-51.0); Immature Granulocytes Abs Auto 0.07 K/uL (0.00-0.30); Immature Granulocytes Pct Auto 0.9 %; Lymphocytes Absolute Auto 2.44 K/uL (0.90-2.90); Lymphocytes Percent Auto 30.5 % (20-44); Mean Corpuscular HGB Conc 34 gm/dL (32-36); Mean Corpuscular Hemoglobin 38 pg (26-34); Mean Corpuscular Volume 113 fL (80-100); Monocytes Percent Auto 5.4 % (0.0-11.0); Neutrophils Absolute Auto 4.88 K/uL (1.7-7.0); Neutrophils Percent Auto 61.1 % (42.0-72.0); Platelet Count* 165 K/uL (140-440); RDW Coefficient of Variation % 21.9 % (11.5-15.5); White Blood Count* 7.99 K/uL (4.50-11.00)
[2024-07-10 07:04] LABS: Hemoglobin* 7.6 gm/dL (12.0-16.0)
[2024-07-10 07:05] LABS: Slide Review Reflex No
[2024-07-10 07:14] LABS: Albumin* 2.3 g/dL (3.3-5.0); Chloride* 98 mmol/L (96-114); Sodium* 128 mmol/L (135-149)
[2024-07-10 07:15] LABS: Potassium* 4.2 mmol/L (3.6-5.1)
[2024-07-10 07:17] LABS: Alanine Aminotransferase* 98 U/L (4-35); Alkaline Phosphatase* 175 U/L (40-150); Anion Gap 2 mEq/L (7-15); Aspartate Amino Transferase* 184 U/L (12-35); Bilirubin Direct* 0.4 mg/dL (0.0-0.5); Bilirubin Total* 0.6 mg/dL (0.1-1.5); Blood Urea Nitrogen* 4 mg/dL (5-24); Carbon Dioxide* 28 mmol/L (20-32); Creatinine* 0.3 mg/dL (0.5-1.5); Est. Creatinine Clearance* 191.24; Estimated Glomerular Filt Rate 135 ml/min; Glucose* 107 mg/dL (60-115); Total Protein* 5.2 g/dL (6.0-8.3)
[2024-07-10] MEDS: LOPERAMIDE HCL 2 MG CAPSULE PO (07:49)
[2024-07-10] MEDS: FOLIC ACID 1 MG TABLET PO (08:58)
[2024-07-10] MEDS: GABAPENTIN 100 MG CAPSULE 300 MG PO ×3 (08:58→21:26)
[2024-07-10] MEDS: MULTIVITAMIN/MINERALS 1 TABLET 1 TAB PO (08:58)
[2024-07-10] MEDS: POTASSIUM CHLORIDE 10 MEQ CAPSULE ER PO ×2 (08:59→17:46)
[2024-07-10] MEDS: CIPROFLOXACIN 500 MG TABLET PO (08:59)
[2024-07-10] MEDS: THIAMINE 250 MG in 0.9 % SODIUM CHLORIDE 100 ml 100 ML 100 MG IVPB (08:59)
[2024-07-10] MEDS: SODIUM CHLORIDE 0.9 % (FLUSH) 10 ML SYRINGE 5 ML IVF ×2 (09:00→21:29)
--- NOTE | 2024-07-10 14:46 | PM.IMPN1 ---
Progress Note: A&P Assessment and plan (1) Pancolitis: Problem details: -on admission CT . Clinically improving. Will stop Cipro and Flagyl today. 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 If not improving with abstinence from alcohol over the next week consider colonoscopy as outpatient. -crp minimally elevated; neg CDIFF, GI pathogen studies all negative, Status: Acute (2) Alcohol withdrawal: Problem details: [facility] protocol. Phenobarb and gabapentin. Improving. Stop lorazepam Status: Acute (3) Acute hypokalemia: Problem details: oral and IV replacement mag replacement Status: Resolved (4) Hypomagnesemia: Problem details: Resolved with replacement Status: Resolved (5) Hypocalcemia: Problem details: Improved. Start oral calcium Status: Acute (6) Metabolic alkalosis: Problem details: Cause for this is a little unclear. Could be contraction alkalosis from vomiting and diarrhea. Continue to monitor and address. Status: Acute (7) Hypophosphatemia: Problem details: Monitor Status: Acute (8) Abdominal pain: Problem details: Having only mild pain but relatively diffuse tenderness. CT shows colitis possibly infectious verses side effect of liver disease and portal hypertension Status: Acute (9) Hyponatremia: Problem details: monitor; fluid restriction NS bolus given - 07/08 sodium improving, 131 today. Symptoms also improving. No longer nauseous or vomiting. I think this is likely secondary to volume depletion and malnutrition due to alcohol use. Encourage good oral intake of food and fluids. Remove fluid restriction. Start nutritional supplements 3 times a day. Nutrition consult. Status: Acute (10) Alcoholic liver disease: Problem details: stigmata: transaminitis; hypoalbuminemia, peripheral edema, electrolyte imbalance, malnourished BUT no thrombocytopenia, anemia. INR normal. MELDNa score 21; 7-10% 90 day mortality SBP still on radar but less likely without ascites. - 07/08 Afebrile. WBC wnl. LFTs stable. Abdomen nontender. Hepatitis panel pending. No thrombocytopenia today. After hydration hemoglobin is lower at 8, stable. Monitor. I think SBP remains less likely. Continue to monitor. Encourage abstinence. Social Work to see. Status: Acute (11) Tobacco dependence: Problem details: nicotine patch Status: Acute (12) Tetrahydrocannabinol (THC) dependence: Status: Acute (13) Anxiety: Problem details: Has previously been on SSRIs like Prozac and Zoloft. Will try Lexapro. Status: Acute Plan Continue in hospital for 1 more day of monitoring of symptoms of colitis and alcohol withdrawal. Anticipate discharge tomorrow if doing well. Time Spent With Patient Total time spent: Total time spent today is 45 minutes in coordination of care discussing with patient, daughter and other providers management of alcohol use disorder and colitis Subjective Date Seen: 07/10/24 Interval history: 43-year-old female with longstanding history of alcohol use disorder, tobacco abuse and marijuana dependence and anxiety admitted to the hospital with weakness dizziness abdominal pain and diarrhea. Symptoms have been present for a couple months. She reports that she has been primarily drinking alcohol and not eating much in the last couple months. She is admitted to the hospital with monitoring and treatment of alcohol withdrawal. She was noted to have marked abnormalities in fluid and electrolyte status with severe hypokalemia, metabolic alkalosis, hyponatremia, hypocalcemia, hypoalbuminemia and dehydration. These were addressed with initially IV then oral replacement. She has been receiving gabapentin, phenobarb and lorazepam for alcohol withdrawal with good management of symptoms. Transaminases are improving. She is beginning to eat a normal diet. Diarrhea is improved. 07/09/2024: Patient reports that she slept well last night. The 1st good night asleep in a long time she reports. She reports still being weak and having troubles getting around. No visual disturbance. 07/10/2024: Patient reports continued to feel better. She seen with her daughter today. Mood and affect are much brighter. She is much more engaged in conversation and plan of care today. She still reports having some abdominal pain and diarrhea. She has been able to eat quite well without nausea or vomiting. Daughter reports they been encouraged her to stop drinking and to get help for this for years. Patient has never been through any type of treatment for her alcohol use disorder. We discussed at length the need to address her anxiety and her alcohol use simultaneously and the critical importance of abstinence from alcohol given her fairly serious medical problems. Exam Narrative: Exam Narrative: She is alert and in no distress. Mood and affect are bright. Respirations are clear to auscultation. Cardiovascular: S1, S2, regular rate and rhythm. Abdomen: Bowel sounds active. Abdomen is soft with diffuse mild tenderness. No peritonitis. No tremor. Const: Vital Signs, click to edit/add: Vital Signs - 24 hr 07/09/24 15:00 07/09/24 15:30 07/09/24 15:30 Temperature 98.5 F Pulse Rate 113 H Pulse Rate [Pulse Oximeter] 107 H 99 Respiratory Rate 16 16 Blood Pressure [Le ft Arm] 126/93 H Pulse Oximetry 98 Oxygen Delivery Me thod Room Air 07/09/24 16:00 07/09/24 20:17 07/09/24 20:18 Temperature 98.8 F 98.8 F Pulse Rate Pulse Rate [Pulse Oximeter] 105 H 105 H Respiratory Rate 20 20 Blood Pressure [Le ft Arm] 128/96 H 128/96 H Pulse Oximetry 97 99 99 Oxygen Delivery Me thod Room Air Room Air 07/09/24 23:00 07/09/24 23:00 07/10/24 00:00 Temperature 98.6 F Pulse Rate 90 Pulse Rate [Pulse Oximeter] 90 104 H Respiratory Rate 18 18 Blood Pressure [Le ft Arm] 108/86 Pulse Oximetry 98 Oxygen Delivery Me thod Room Air 07/10/24 03:00 07/10/24 04:00 07/10/24 07:20 Temperature 98.7 F 98.7 F Pulse Rate 91 Pulse Rate [Pulse Oximeter] 92 92 Respiratory Rate 16 16 Blood Pressure [Le ft Arm] 107/80 107/80 Pulse Oximetry 99 99 Oxygen Delivery Me thod Room Air Room Air 07/10/24 07:20 07/10/24 07:20 07/10/24 08:00 Temperature 98.4 F 98.4 F Pulse Rate Pulse Rate [Pulse Oximeter] 95 995 H 99 Respiratory Rate 16 16 16 Blood Pressure [Le ft Arm] 107/83 107/83 Pulse Oximetry 100 100 Oxygen Delivery Me thod Room Air Room Air 07/10/24 11:00 Temperature 98.0 F Pulse Rate Pulse Rate [Pulse Oximeter] 103 H Respiratory Rate 16 Blood Pressure [Le ft Arm] 111/85 Pulse Oximetry 100 Oxygen Delivery Me thod Room Air Documenting provider has reviewed patient's vital signs: yes Labs Labs: Laboratory Results - last 24 hr 07/07/24 07/07/24 07/10/24 11:10 16:06 06:15 WBC 7.99 RBC 2.00 L Hgb 7.6 L* Hct 22.6 L MCV 113 H MCH 38 H MCHC 34 RDW Coeff of Sylvain 21.9 H Plt Count 165 Neut % (Auto) 61.1 Lymph % (Auto) 30.5 [place] % (Auto) 5.4 Eos % (Auto) 1.5 Baso % (Auto) 0.6 Neut # (Auto) 4.88 Lymph # (Auto) 2.44 [place] # (Auto) 0.40 Eos # (Auto) 0.12 Baso # (Auto) 0.05 Abs Immat Gran (auto) 0.07 Imm/Tot Granulo (auto) 0.9 Sodium 128 L Potassium 4.2 Chloride 98 Carbon Dioxide 28 Anion Gap 2 L BUN 4 L Creatinine 0.3 L Estimated Creat Clear 191.24 Estimated GFR 135 Glucose 107 Calcium 8.0 L Total Bilirubin 0.6 Direct Bilirubin 0.4 AST 184 H ALT 98 H Alkaline Phosphatase 175 H Total Protein 5.2 L Albumin 2.3 L Stl C. cayetanensis PCR Not Detected Stool Rotavirus A PCR Not Detected Stool Adenovirus (PCR) Not Detected Stool Astrovirus (PCR) Not Detected Stool Campylobacter PCR Not Detected Stool Cryptosporidium PCR Not Detected Stl E.coli Shiga Tox PCR Not Detected Stool E coli O157 PCR N/A Stl Enterotoxigenic E PCR Not Detected Stool EPEC (PCR) Not Detected Stool EAEC (PCR) Not Detected Stl E. histolytica PCR Not Detected Stool Giardia Lamblia PCR Not Detected Stl P. shigelloides PCR Not Detected Stool Salmonella PCR Not Detected Stool Sapovirus (PCR) Not Detected Stl Shigella/EIEC PCR Not Detected St Y.enterocolitica PCR Not Detected Stool Vibrio (PCR) Not Detected Stl Vibrio cholerae PCR Not Detected Stl Norovirus GI/GII PCR Not Detected Hepatitis A IgM Ab Negative Hep Bs Antigen Negative Hep B Core IgM Ab Negative Hep C Ab Index (KENRICK) 0.22 Hep C Ab Interp KENRICK Negative Hepatitis Interpret See Note
[2024-07-10] MEDS: ESCITALOPRAM 10 MG TABLET PO (15:17)
--- NOTE | 2024-07-10 18:52 | PC.NURSE ---
End of shift [id number]: Pt has been A&O, afebrile and VSS this shift. Her CIWA?s have been scoring negative- only flagging on mild anxiety and light sensitivity. She is up independently in her room with a walker. Took a shower this afternoon. IV Flagyl & TELE were discontinued by Dr. Rogers. PIV in left FA is SL and C/D/I. Pt has been compliant with cares & in a pleasant mood today. Dr. Rogers started her on Lexapro daily for anxiety. Only c/o pain is her abdomen which she reports is tender; RN provided education on meal choices & diet plan for colitis to help relieve the pain & lessen her loose stools. ?
[2024-07-10] MEDS: PHENobarbitaL 32.4 MG TABLET 97.2 MG PO (21:25)
[2024-07-10] MEDS: ENOXAPARIN 40 MG/0.4 ML INJ SUBCUT (21:26)
[2024-07-11 02:00] VITALS: BP 116/67; PULSE 109; RESP 18; TEMP 37.1; O2SAT 97
[2024-07-11 03:00] VITALS: BP 114/81; PULSE 113; RESP 16; TEMP 36.4; O2SAT 98
[2024-07-11 05:20] VITALS: BP 114/81; PULSE 113; RESP 16; TEMP 36.4; O2SAT 98
--- NOTE | 2024-07-11 05:22 | PC.NURSE ---
End of shift report [id number]: alert and oriented x 4. Reporting headache that starts above left eye and extends over top of head, varies in intensity with patient rating it anywhere from 2 to 7/10. Patient at times clutching the sides of her head and crying and when pain lessens she is witnessed to be rubbing above left eye brown. PRN tylenol administered with minimal relief. At 2230 patient up independently to bathroom with typewriter aligner present, increased anxiety and restlessness at that time. Patient visibly sweating with beads of sweat on chest that saturated her shirt and beads of sweat across forehead. Mild shaking of bilateral hands. Assisted patient back into bed and assisted with providing a quiet and dark enviroment to assist with head pain and sensitivity. Patient was able to fall back asleep after 1 hour. Independent with ambulation with walker. Appetite good, ate 75% of dinner, denied any nausea post meal.
[2024-07-11 06:30] LABS: Basophils Absolute Auto 0.05 K/uL (0.00-0.30); Basophils Percent Auto 0.6 % (0.0-3.0); Eosinophils Absolute Auto 0.08 K/uL (0.00-0.50); Eosinophils Percent Auto 0.9 % (0.0-7.0); Hematocrit 21.9 % (33.0-51.0); Immature Granulocytes Abs Auto 0.15 K/uL (0.00-0.30); Immature Granulocytes Pct Auto 1.8 %; Lymphocytes Absolute Auto 2.36 K/uL (0.90-2.90); Lymphocytes Percent Auto 27.6 % (20-44); Mean Corpuscular HGB Conc 34 gm/dL (32-36); Mean Corpuscular Hemoglobin 38 pg (26-34); Mean Corpuscular Volume 113 fL (80-100); Monocytes Percent Auto 8.2 % (0.0-11.0); Neutrophils Percent Auto 60.9 % (42.0-72.0); Platelet Count* 173 K/uL (140-440); RDW Coefficient of Variation % 22.8 % (11.5-15.5); Red Blood Count 1.94 m/uL (4.00-5.20); White Blood Count* 8.54 K/uL (4.50-11.00)
[2024-07-11 06:31] LABS: Hemoglobin* 7.4 gm/dL (12.0-16.0); Slide Review Reflex No
[2024-07-11 06:38] LABS: Albumin* 2.3 g/dL (3.3-5.0); Chloride* 101 mmol/L (96-114)
[2024-07-11 06:39] LABS: Potassium* 4.2 mmol/L (3.6-5.1); Sodium* 130 mmol/L (135-149)
[2024-07-11 06:41] LABS: Alkaline Phosphatase* 166 U/L (40-150); Anion Gap 2 mEq/L (7-15); Aspartate Amino Transferase* 140 U/L (12-35); Bilirubin Direct* 0.3 mg/dL (0.0-0.5); Bilirubin Total* 0.4 mg/dL (0.1-1.5); Blood Urea Nitrogen* 5 mg/dL (5-24); Calcium* 8.2 mg/dL (8.4-10.6); Carbon Dioxide* 27 mmol/L (20-32); Creatinine* 0.3 mg/dL (0.5-1.5); Est. Creatinine Clearance* 191.24; Estimated Glomerular Filt Rate 135 ml/min; Glucose* 101 mg/dL (60-115); Total Protein* 5.1 g/dL (6.0-8.3)
[2024-07-11 06:42] LABS: Alanine Aminotransferase* 80 U/L (4-35)
[2024-07-11] MEDS: OMEPRAZOLE 20 MG CAPSULE DR 40 MG PO (07:05)
[2024-07-11 08:17] VITALS: BP 113/87; PULSE 104; RESP 18; O2SAT 100
[2024-07-11] MEDS: LOPERAMIDE HCL 2 MG CAPSULE PO (08:23)
[2024-07-11] MEDS: MULTIVITAMIN/MINERALS 1 TABLET 1 TAB PO (08:23)
[2024-07-11] MEDS: ESCITALOPRAM 10 MG TABLET PO (08:23)
[2024-07-11] MEDS: FOLIC ACID 1 MG TABLET PO (08:23)
[2024-07-11] MEDS: POTASSIUM CHLORIDE 10 MEQ CAPSULE ER PO (08:24)
[2024-07-11] MEDS: SODIUM CHLORIDE 0.9 % (FLUSH) 10 ML SYRINGE 5 ML IVF (08:24)
[2024-07-11] MEDS: GABAPENTIN 100 MG CAPSULE 300 MG PO (08:24)
[2024-07-11 08:27] VITALS: O2SAT 100
--- NOTE | 2024-07-11 11:03 | P.DS_ITS ---
DS: Providers Provider Date Seen: 07/11/24 Date of admission: 07/07/24 14:56 Primary care physician: Not a Local Provider Admitting Clinician: Ria Quintanilla MD Attending Physician on discharge: Alejandro Rogers MD Date of Discharge: 07/11/24 DS: Diagnosis Discharge Diagnosis (1) Alcohol withdrawal: Status: Acute Problem details: [facility] protocol. Phenobarb and gabapentin. Symptoms resolved. Discharged on gabapentin. Outpatient alcohol treatment recommended (2) Pancolitis: Status: Acute Problem details: Chronic diarrhea prior to admission.- Martin colitis on admission CT. Clinically improving. Treated with Cipro and Flagyl. Clinically improved but not resolved neg CDIFF, GI pathogen studies all negative, Consider outpatient colonoscopy to evaluate if still symptomatic in follow-up (3) Acute hypokalemia: Status: Resolved Problem details: Resolved with replacement. Temporarily continue supplemental potassium as an outpatient with follow up next week (4) Hypomagnesemia: Status: Resolved Problem details: Resolved with replacement (5) Hypocalcemia: Status: Acute Problem details: Improved. Start oral calcium (6) Metabolic alkalosis: Status: Acute Problem details: Suspected to be due to poor oral intake and chronic diarrhea. Resolved (7) Hypophosphatemia: Status: Acute Problem details: Monitor (8) Abdominal pain: Status: Acute Problem details: Having only mild pain but relatively diffuse tenderness. CT shows colitis . Also has some tenderness over the liver which is also inflamed (9) Hyponatremia: Status: Acute Problem details: Hyponatremia probably related to alcohol abuse and poor oral intake. Improved but not resolved. Outpatient follow-up (10) Alcoholic liver disease: Status: Acute Problem details: Transaminases were markedly elevated consistent with alcoholic hepatitis. Improved through her hospital stay. (11) Tobacco dependence: Status: Acute Problem details: nicotine patch (12) Tetrahydrocannabinol (THC) dependence: Status: Acute (13) Anxiety: Status: Acute Problem details: Has previously been on SSRIs like Prozac and Zoloft. Will try Lexapro. Outpatient follow-up (14) Macrocytic anemia: Status: Acute Problem details: Stable. Probably related to alcohol abuse and liver disease. Outpatient follow-up. Consider outpatient workup including upper and lower endoscopy DS: Summary Hospital Course Hospital Course: 43-year-old female with longstanding history of alcohol use disorder, tobacco abuse and marijuana dependence and anxiety admitted to the hospital with weakness dizziness abdominal pain and diarrhea. Symptoms have been present for a couple months. She reports that she has been primarily drinking alcohol and not eating much in the last couple months. She is admitted to the hospital with monitoring and treatment of alcohol withdrawal. She was noted to have marked abnormalities in fluid and electrolyte status with severe hypokalemia, metabolic alkalosis, hyponatremia, hypocalcemia, hypoalbuminemia and dehydration. These were addressed with initially IV then oral replacement. She has been receiving gabapentin, phenobarb and lorazepam for alcohol withdrawal with good management of symptoms. Transaminases are improving. She is beginning to eat a normal diet. Diarrhea is improved. Her alcohol withdrawal symptoms have resolved. She is much stronger and now able to ambulate independently. She is eating a normal diet. Her abdominal pain is still persistent but much improved. Her diarrhea is much improved as well. At the time of discharge her electrolytes have largely corrected. Still has mild hyponatremia with a sodium of 130. Status at Discharge Functional status at discharge: independent ambulation Overall status at discharge: patient is progressing back to baseline Time Spent with Patient Time attestation: Total time spent providing and/or coordinating discharge services: 40 minutes Exam Narrative: Exam Narrative: She is alert appears in no distress. Mood and affect are bright. Speech is normal. She is observed to ambulate independently in her room. Abdomen is soft. She has mild tenderness most prominently in the right upper quadrant and to a lesser degree in the right lower quadrant and epigastrium. Much less ten derness compared to previous exams. No tremor Const: Vital Signs, click to edit/add: Vital Signs - 24 hr 07/10/24 15:00 07/10/24 15:00 07/10/24 16:00 Temperature 98.6 F Pulse Rate [Pulse Oximeter] 112 H 112 H Respiratory Rate 16 16 Blood Pressure [Le ft Arm] 124/86 Pulse Oximetry 100 100 Oxygen Delivery Me thod Room Air 07/10/24 17:54 07/10/24 19:00 07/10/24 22:00 Temperature 98.6 F 99.1 F 98.8 F Pulse Rate [Pulse Oximeter] 112 H 106 H 109 H Respiratory Rate 16 16 18 Blood Pressure [Le ft Arm] 124/86 109/84 116/67 Pulse Oximetry 100 100 97 Oxygen Delivery Me thod Room Air Room Air Room Air 07/10/24 23:00 07/10/24 23:00 07/11/24 02:00 Temperature 98.8 F 98.8 F Pulse Rate [Pulse Oximeter] 109 H 109 H 109 H Respiratory Rate 18 18 18 Blood Pressure [Le ft Arm] 116/67 116/67 Pulse Oximetry 97 97 Oxygen Delivery Me thod Room Air Room Air 07/11/24 03:00 07/11/24 05:20 07/11/24 08:17 Temperature 97.6 F 97.6 F Pulse Rate [Pulse Oximeter] 113 H 113 H 104 H Respiratory Rate 16 16 18 Blood Pressure [Le ft Arm] 114/81 114/81 113/87 Pulse Oximetry 98 98 100 Oxygen Delivery Me thod Room Air Room Air 07/11/24 08:27 Temperature Pulse Rate [Pulse Oximeter] Respiratory Rate Blood Pressure [Le ft Arm] Pulse Oximetry 100 Oxygen Delivery Me thod Room Air Documenting provider has reviewed patient's vital signs: yes DS: Data Data Completed and Pending Labs on day of discharge: Labs from last 24 hours 07/11/24 06:13 WBC 8.54 RBC 1.94 L Hgb 7.4 L* Hct 21.9 L MCV 113 H MCH 38 H MCHC 34 RDW Coeff of Sylvain 22.8 H Plt Count 173 Neut % (Auto) 60.9 Lymph % (Auto) 27.6 [place] % (Auto) 8.2 Eos % (Auto) 0.9 Baso % (Auto) 0.6 Neut # (Auto) 5.20 Lymph # (Auto) 2.36 [place] # (Auto) 0.70 Eos # (Auto) 0.08 Baso # (Auto) 0.05 Abs Immat Gran (auto) 0.15 Imm/Tot Granulo (auto) 1.8 Sodium 130 L Potassium 4.2 Chloride 101 Carbon Dioxide 27 Anion Gap 2 L BUN 5 Creatinine 0.3 L Estimated Creat Clear 191.24 Estimated GFR 135 Glucose 101 Calcium 8.2 L Total Bilirubin 0.4 Direct Bilirubin 0.3 AST 140 H ALT 80 H Alkaline Phosphatase 166 H Total Protein 5.1 L Albumin 2.3 L Preliminary micro results at discharge 07/07/24 20:24 Blood Culture - Preliminary Blood NO GROWTH AFTER [address] Chest/Ab/Pelvis: Radiologist's impression: INDICATION: Tachycardia, liver disease TECHNIQUE: CT chest, abdomen and pelvis acquired with 54 milliliters Isovue 370 IV contrast. COMPARISON: None. FINDINGS: CHEST: Cardiovascular structures: Heart size is normal. Thoracic aorta and main pulmonary artery are normal in caliber. No central pulmonary embolism. Mediastinum and johnathan: No mass or adenopathy. Lungs and pleura: Lungs and pleural spaces are clear. No suspicious nodules, infiltrates, or effusions. Chest wall and axilla: Bilateral breast implants. No mass or adenopathy. Bones: No suspicious bone lesions. Unremarkable for age. ABDOMEN AND PELVIS: Liver: Severe hepatic steatosis. Gallbladder and bile ducts: Unremarkable. Pancreas: Unremarkable. Spleen: Unremarkable. Adrenal glands: Unremarkable. Kidneys: No hydronephrosis. GI tract: Diffuse colonic wall thickening most pronounced about the ascending and sigmoid colon/rectum. Additional gastric wall thickening. No bowel obstruction. Vascular structures: Unremarkable. Lymph nodes: Unremarkable. Miscellaneous: Unremarkable. No free air or significant free fluid. Pelvic Organs: Unremarkable. Bones: No suspicious bone lesions. Unremarkable for age. IMPRESSION: Diffuse gastric and colonic wall thickening most pronounced in the ascending and sigmoid colon/rectum, possibly related to gastric/portal colopathy in this patient with chronic hepatocellular disease, including severe hepatic steatosis. Acute pancolitis could have a similar appearance and should be clinically excluded. Otherwise, no acute intrathoracic or intra-abdominal/pelvic abnormality. Discharge Plan Discharge Disposition: Home, Self-Care Date of Admission: 07/07/24 14:56 Attending Provider on Discharge: Edy Rogers Primary Care Provider: Provider,Not a Local Condition: Stable Anticipated Discharge Date/Time: 07/11/24 10:42 Discharge Medications: New nicotine 14 mg/24 hr Patch 24 Hour 1 patch transdermal Q24H Qty: 28 0RF omeprazole 20 mg Capsule,Delayed Release(Dr/Ec) 40 mg PO DAILY@0700 Qty: 30 0RF gabapentin 100 mg Capsule 300 mg PO TID Qty: 90 0RF escitalopram oxalate 10 mg Tablet 10 mg PO DAILY Qty: 30 0RF multivitamin with folic acid [Thera] 400 mcg Tablet 1 tab PO DAILY Qty: 100 0RF potassium chloride 10 mEq tablet extended release 10 meq PO DAILY Qty: 30 0RF calcium carbonate-vitamin D3 [Calcium 500 With D] 500 mg-10 mcg (400 unit) tablet 1 tab PO DAILY Qty: 30 0RF loperamide [Imodium A-D] 2 mg capsule 2 mg PO QID PRN (Reason: loose stool) Qty: 100 0RF Continued Diurex 162.5-50 mg tablet 1 tab PO DAILY Discharge Orders: Discharge Order (Routine); Ordered 07/11/24 Ordered By: Edy Rogers Additional Instructions: Is important for you to stop drinking. Alcohol has caused many serious health complications for you. Stopping is difficult. Generally people are more successful if they get professional help or participate in AA. To follow-up the medical problems we have talked about you should see your new doctor in a week. This includes rechecking your blood tests for electrolytes and liver problems. Your doctor can address your colitis and diarrhea and possibly refer you to a american board certified orthotist. Activity Level: No Restrictions Discharge Diet: Regular Follow Up Appointments: [facility] [Provider Group] (Follow-up with the primary care provider at [facility] in [place] in 1 week. At that time recheck basic metabolic panel, CBC and liver function tests.) Provider,Not a Local [Primary Care Provider] - Forms: [employer] Info Instructions
--- NOTE | 2024-07-11 12:44 | PC.NURSE ---
The patient discharged home with her daughter. The patient was educated on the importance of quitting drinking and educated on resources to help with this. She was also educated on all of her medications. All belongings were sent home with the patient. Ambulated off the unit. Ani HARRIS BSN
--- NOTE | 2024-07-11 13:36 | PC.SOCIAL ---
Discharge planning: Met with pt regarding d/c plan. Pt lives alone in an apartment in [place]. The apartment is on the fifth floor with stairs and no elevator. Pt states she has already spoken with her landlord who has many apartments and is looking for one for her with less stairs to enter. Pt is paid up for her apartment through the end of the year, so wants to work with her current landlord instead of seeking a different apartment on her own. Pt states she could stay with her daughter temporarily if needed at discharge but thinks she will be able to do the stairs at discharge. Pt currently has no medical insurance and is planning to apply for Medical Assistance. Shared with pt the [facility] to work [facility] [place] [facility] [place] at either the [facility] or [facility] to apply for Medical Assistance and provided her with written information on these options. Provided pt with written information on substance treatment options. Pt states she has already been through substance treatment and will be able to stop drinking on her own. She plans to go to for support. Pt is aware of how to contact hospital social and human services assistant if additional resources are needed.
== END 2024-07-11 12:35 | disposition home or self-care (01) | DRG 775 ==
LOC: ED 11:34 → MEDSURG 13:46
PROVIDERS: Emergency Medicine; Family Medicine; Admitting Provider Family Medicine; Emergency Provider Emergency Medicine; Visit Provider Family Medicine
DX: F10.239 Alcohol dependence with withdrawal, unspecified (principal); E43 Unspecified severe protein-calorie malnutrition; E87.3 Alkalosis; N39.0 Urinary tract infection, site not specified; E87.1 Hypo-osmolality and hyponatremia; F10.229 Alcohol dependence with intoxication, unspecified; K70.9 Alcoholic liver disease, unspecified; Y90.4 Blood alcohol level of 80-99 mg/100 ml; E86.0 Dehydration; E87.6 Hypokalemia; K70.0 Alcoholic fatty liver; R10.84 Generalized abdominal pain; K52.89 Other specified noninfective gastroenteritis and colitis; D53.9 Nutritional anemia, unspecified; E61.2 Magnesium deficiency; F41.9 Anxiety disorder, unspecified; E58 Dietary calcium deficiency; B96.20 Unspecified Escherichia coli [E. coli] as the cause of diseases classified elsewhere; R00.0 Tachycardia, unspecified; Z68.21 Body mass index [BMI] 21.0-21.9, adult; F17.210 Nicotine dependence, cigarettes, uncomplicated; F12.20 Cannabis dependence, uncomplicated
CPT/HCPCS: 36415; 71046; 71260; 74177; 80048; 80053; 80069; 80074; 80076; 80306; 81001; 81025; 82040; 82077; 82330; 82550; 82803; 82977; 83605; 83690; 83735; 83880; 84100; 84145; 84443; 84484; 84703; 85025; 85027; 85610; 86140; 87040; 87086; 87186; 87493; 87505; 87631; 93005; 93306; 94761; 97110; 97116; 97162; 97166; 97530; 99284; 99285; A9153; A9270; J0613; J0744; J1171; J1650; J1836; J2470; J2560; J3411; J3475; J3480; J7030; P9047; Q9967; S5010